=== PATIENT | male | born 1990 | race Caucasian/White ===

== ENCOUNTER 2016-04-30 10:54 | Emergency (ER) | payer OTHER ==
--- NOTE | 2016-04-30 11:16 | ERPHSYRPT ---
- History of Present Illness Time Seen by Provider: 04/30/16 11:09 Historian: patient Exam Limitations: no limitations Patient Subjective Stated Complaint: rt flank pain sicne this morning Triage Nursing Assessment: states has rt flank pain radiating to rt groin and testicle. vomited [employer]. skin warm and pale. denies pain with urination 'but it feels like i have to poop' Physician History: The patient is a 25-year-old male brought in by his brother complaining of a sudden onset of right flank pain radiating down to his right groin. This began about 45 minutes ago when he first woke up. In the meantime he has vomited once. The pain in his right flank is severe. He has no history of kidney stones. He has no past surgical history. He takes no medicines. He has no allergies. He states his urination is slightly difficult and his urine is reddish. Timing/Duration: today, hour(s) (3/4), sudden Activities at Onset: sleep Quality: stabbing Abdominal Pain Onset Location: flank (right) Pain Radiation: groin (right) Severity of Pain-Max: severe Severity of Pain-Current: severe Modifying Factors: Improves With: nothing Associated Symptoms: nausea, vomiting Previous symptoms: no prior history Allergies/Adverse Reactions: No Known Drug Allergies Allergy (Unverified 04/30/16 11:05) Home Medications: No Home Meds 1 [facility] UD 04/30/16 [History] Hx Tetanus, Diphtheria Vaccination/Date Given: Yes Hx Influenza Vaccination/Date Given: No Hx Pneumococcal Vaccination/Date Given: No Immunizations Up to Date: Yes - Review of Systems Constitutional: No Fever, No Chills Eyes: No Symptoms Ears, Nose, & Throat: No Symptoms Respiratory: No Cough, No Dyspnea Cardiac: No Chest Pain, No Edema, No Syncope Abdominal/Gastrointestinal: Abdominal Pain, Nausea, Vomiting Genitourinary Symptoms: Flank Pain Musculoskeletal: No Back Pain, No Neck Pain Skin: No Rash Neurological: No Dizziness, No Focal Weakness, No Sensory Changes Psychological: No Symptoms Endocrine: No Symptoms Hematologic/Lymphatic: No Symptoms Immunological/Allergic: No Symptoms All Other Systems: Reviewed and Negative - Past Medical History Pertinent Past Medical History: Yes Psycho-Social History: Depression - Past Surgical History Past Surgical History: No - Social History Smoking Status: Current every day smoker Drug Use: none Patient Lives Alone: No - Nursing Vital Signs Nursing Vital Signs: Initial Vital Signs Temperature 98.4 F Temperature Source Oral Pulse Rate 80 Respiratory Rate 18 Blood Pressure 117/67 Pain Intensity 4 - Physical Exam General Appearance: moderate distress Eye Exam: PERRL/EOMI, eyes nml inspection Ears, Nose, Throat Exam: normal ENT inspection, pharynx normal, moist mucous membranes Neck Exam: normal inspection, non-tender, supple, full range of motion Respiratory Exam: normal breath sounds, lungs clear, No respiratory distress Cardiovascular Exam: regular rate/rhythm, normal heart sounds Gastrointestinal/Abdomen Exam: tenderness (right) Back Exam: CVA tenderness (right) Extremity Exam: normal inspection, normal range of motion, pelvis stable Neurologic Exam: alert, oriented x 3, cooperative, normal mood/affect, nml cerebellar function, sensation nml, No motor deficits Skin Exam: normal color, warm, dry SpO2 Interpretation: normal SpO2: 100 Oxygen Delivery: Room Air - CT Exams Abdomen/Pelvis CT Interpretation: Tele-radiologist Report, Normal Appendix, Other (right ureteral 5 mm stone with mild hydronephrosis) Ordered Tests: Active Orders 24 hr Category Date Time Status IV Insertion STAT Care 04/30/16 11:20 Active ABDOMEN AND PELVIS W/0 CONTRAS [CT] Stat Exams 04/30/16 12:09 Completed CBC W DIFF Stat Lab 04/30/16 11:30 Completed CMP Stat Lab 04/30/16 11:30 Completed LIPASE Stat Lab 04/30/16 11:30 Completed Manual Differential NC Stat Lab 04/30/16 11:30 Completed UA W/ MICROSCOPIC Stat Lab 04/30/16 11:30 Completed Medication Summary Discontinued Medications Generic Name Dose Route Start Last Admin Trade Name Freq PRN Reason Stop Dose Admin Sodium Chloride 1,000 mls @ 999 mls/hr 04/30/16 11:20 04/30/16 11:34 Sodium Chloride 0.9% 1000 Ml IV 04/30/16 12:20 999 mls/hr .Q1H1M STA Administration Sodium Chloride Confirm 04/30/16 11:33 Sodium Chloride 0.9% 1000 Ml Administered 04/30/16 11:34 Dose 1,000 mls @ ud .ROUTE .STK-MED ONE Ketorolac Tromethamine 30 mg 04/30/16 11:20 04/30/16 11:34 Toradol 30 Mg Injection IV 04/30/16 11:21 30 mg STAT ONE Administration Ketorolac Tromethamine Confirm 04/30/16 11:33 Toradol 30 Mg Injection Administered 04/30/16 11:34 Dose 30 mg .ROUTE .STK-MED ONE Ondansetron HCl 4 mg 04/30/16 11:20 04/30/16 11:34 Zofran 4 Mg/2 Ml Vial IV 04/30/16 11:21 4 mg STAT ONE Administration Ondansetron HCl Confirm 04/30/16 11:33 Zofran 4 Mg/2 Ml Vial Administered 04/30/16 11:34 Dose 4 mg .ROUTE .STK-MED ONE Tamsulosin HCl 0.4 mg 04/30/16 12:43 04/30/16 12:46 Flomax 0.4 Mg PO 04/30/16 12:44 0.4 mg DAILY STA Administration Tamsulosin HCl Confirm 04/30/16 12:45 Flomax 0.4 Mg Administered 04/30/16 12:46 Dose 0.4 mg .ROUTE .STK-MED ONE Lab/Rad Data: Laboratory Result Diagrams 04/30/16 11:30 04/30/16 11:30 Laboratory Results 04/30/16 04/30/16 04/30/16 Range/Units 11:30 11:30 11:30 WBC 9.2 (4.0-10.5) K/mm3 RBC 4.91 (4.1-5.6) M/mm3 Hgb 14.7 (12.5-18.0) gm/dl Hct 44.3 (42-50) % MCV 90.2 (78-100) fl MCH 29.9 (26-32) pg MCHC 33.2 (32-36) g/dl RDW 13.0 (11.5-14.0) % Plt Count 353 (150-450) K/mm3 MPV 8.9 (6-9.5) fl Segmented Neutrophils 60 (36.-66.) % Band Neutrophils 1 (0.0-2.0) % Lymphocytes (Manual) 26 (24-44) % Monocytes (Manual) 9 (0.0-12.0) % Eosinophils (Manual) 3 (0.00-3.0) % Basophils (Manual) 1 (0.0-1.0) % Differential Comment NORMAL Platelet Estimate NORMAL (NORMAL) Sodium 141 (136-145) mEq/L Potassium 3.8 (3.5-5.1) mEq/L Chloride 102 (98-107) mEq/L Carbon Dioxide 27.8 (21-32) mEq/L Anion Gap 14.5 (5-15) MEQ/L BUN 12 (9-20) mg/dL Creatinine 0.96 (0.55-1.30) mg/dl Estimated GFR > 60 ML/MIN Glucose 125 H (70-110) MG/DL Calcium 9.3 (8.5-10.1) mg/dL Total Bilirubin 0.5 (0.2-1.0) mg/dL AST 52 H (15-37) U/L ALT 167 H (12-78) U/L Alkaline Phosphatase 83 (46-116) U/L Serum Total Protein 8.0 (6.4-8.2) gm/dL Albumin 4.4 (3.4-5.0) g/dL Lipase 132 (73-393) U/L Ur Collection Type VOID Urine Color RED (YELLOW) Urine Appearance CLOUDY (CLEAR) Urine pH 5.0 (5-6) Ur Specific [place] >=1.030 (1.005-1.025) Urine Protein 100 (Negative) Urine Glucose (UA) NEGATIVE (NEGATIVE) mg/dL Urine Ketones NEGATIVE (NEGATIVE) Urine Nitrite NEGATIVE (NEGATIVE) Urine Bilirubin SMALL (NEGATIVE) Urine Urobilinogen 0.2 (0-1) mg/dL Urine WBC (Auto) NEGATIVE (NEGATIVE) Urine RBC (Auto) LARGE (0-5) Jack/ul Urine Microscopic RBC >100 (0-2) /HPF Urine Microscopic WBC 0-2 (0-5) /HPF Ur Epithelial Cells RARE (FEW) /HPF Urine Bacteria MODERATE (NEGATIVE) /HPF Urine Mucus SLIGHT (NEGATIVE) /HPF Urine Yeast FEW (NEGATIVE) /HPF Specimen Received 04/30/16 1120 - Progress Progress: improved, pain not gone completely Counseled pt/family regarding: lab results, diagnosis, need for follow-up, rad results - Departure Time of Disposition: 12:51 Departure Disposition: Home Clinical Impression: Ureteral stone with hydronephrosis Condition: Stable Critical Care Time: No Additional Instructions: Stain urine and retrieve stone. Follow up with Dr Henderson after stone passage. Follow up in 2 days if stone has not passed. [place] as directed. Stay well hydrated. Prescriptions: Hydrocodone Bit/Acetaminophen [[place] 5-325 Tablet] 1 each PO Q6H PRN PRN #15 tablet PRN Reason: Pain Naproxen 500 mg PO BID PRN #30 tablet
[2016-04-30] MEDS ORDERED: TORAdol 30 mg Injection IV ONE (11:20)
[2016-04-30] MEDS ORDERED: Zofran 4 MG/2 ML VIAL IV ONE (11:20)
[2016-04-30] MEDS ORDERED: Sodium Chloride 0.9% 1000 ML 1,000 ML IV STA (11:20)
[2016-04-30] MEDS ORDERED: Zofran 4 MG/2 ML VIAL ONE (11:33)
[2016-04-30] MEDS ORDERED: TORAdol 30 mg Injection ONE (11:33)
[2016-04-30] MEDS ORDERED: Sodium Chloride 0.9% 1000 ML 1,000 ML ONE (11:33)
[2016-04-30 11:45] LABS: Mean Cell Volume 90.2 fl (78-100); Mean Corpuscular Hemoglobin 29.9 pg (26-32); Mean Platelet Volume 8.9 fl (6-9.5); Platelet Count 353 K/mm3 (150-450); Red Blood Count 4.91 M/mm3 (4.1-5.6); White Blood Count 9.2 K/mm3 (4.0-10.5)
[2016-04-30 11:51] LABS: COMPLETE URINE MICROSCOPIC? YES; Collection Type VOID
[2016-04-30 11:53] LABS: Mucus SLIGHT /HPF (NEGATIVE)
[2016-04-30 11:54] LABS: WBC 0-2 /HPF (0-5)
[2016-04-30 11:55] LABS: Bacteria MODERATE /HPF (NEGATIVE); Epithelial Cells RARE /HPF (FEW)
[2016-04-30 11:58] LABS: Yeast FEW /HPF (NEGATIVE)
[2016-04-30 12:01] LABS: ALBUMIN 4.4 g/dL (3.4-5.0); ALKALINE PHOSPHATASE 83 U/L (46-116); ANION GAP 14.5 MEQ/L (5-15); BILIRUBIN,TOTAL 0.5 mg/dL (0.2-1.0); BLOOD UREA NITROGEN 12 mg/dL (9-20); CHLORIDE 102 mEq/L (98-107); Carbon Dioxide 27.8 mEq/L (21-32); Glucose 125 MG/DL (70-110); LIPASE 132 U/L (73-393); Potassium 3.8 mEq/L (3.5-5.1); SGOT/AST 52 U/L (15-37); SGPT/ALT 167 U/L (12-78); SODIUM 141 mEq/L (136-145)
[2016-04-30 12:05] LABS: BAND 1 % (0.0-2.0); Basophil 1 % (0.0-1.0); Eosinophil 3 % (0.00-3.0); Platelet Estimate NORMAL (NORMAL); Total Cells Counted 100
--- NOTE | 2016-04-30 12:39 | XRAY ---
Indication: Right flank pain, blood in urine, nausea, and vomiting. Multiple contiguous axial images obtained through the abdomen and pelvis without contrast using renal stone protocol. Comparison: None Lung bases are clear. Heart is not enlarged. 5 mm right mid ureteral calculus, approximately L3-L4 interspace level. Proximal right ureter slightly prominent along with mild hydronephrosis consistent with obstructive uropathy. No free fluid/air. Additional bilateral renal micro-calculi, 2 in the right kidney and 1 in the left kidney. Noncontrasted stomach and bowel loops appear nonobstructed. Mild scattered colonic fecal debris throughout. Normal appendix. Remaining liver, gallbladder, pancreas, spleen, adrenal glands, kidneys, ureters, bladder, and aorta appear unremarkable for noncontrast exam. Osseous structures intact. Impression: 1. 5 mm right mid ureteral calculus producing partial obstruction as detailed. Additional bilateral renal micro-calculi. 2. Mild fecal stasis without obstruction. CT DI is 11.57
[2016-04-30] MEDS ORDERED: Flomax 0.4 MG PO STA (12:43)
[2016-04-30] MEDS ORDERED: Flomax 0.4 MG ONE (12:45)
[2016-04-30 13:42] VITALS: BP 123/67; PULSE 77; O2SAT 98
== END 2016-04-30 13:25 | disposition home or self-care (01) ==
LOC: ED 10:54
DX: N13.2 Hydronephrosis with renal and ureteral calculous obstruction (principal); R10.9 Unspecified abdominal pain; R11.2 Nausea with vomiting, unspecified
CPT/HCPCS: 36000; 36415; 74176; 80053; 81000; 83690; 85025; 96360; 99283; J1885; J2405

== ENCOUNTER 2016-05-01 17:22 | Observation (INO) | payer OTHER ==
[2016-05-01] MEDS ORDERED: TYLENOL 325 MG PO PRN (17:31)
[2016-05-01] MEDS ORDERED: Phenergan 25 MG INJ IV PRN (17:32)
[2016-05-01] MEDS ORDERED: Colace 100 MG PO PRN (17:32)
[2016-05-01] MEDS ORDERED: Sodium Chloride 0.9% 1000 ML 1,000 ML IV SCH (18:00)
[2016-05-01] MEDS: Dextrose 5% -0.45 NaCl 1000 ML 1,000 ML IV SCH (18:31)
[2016-05-01] MEDS: NICODERM CQ 14 MG TOP SCH (18:31)
[2016-05-01 18:38] LABS: BASOPHIL % 0.1 % (0.0-0.4); Eosinophil % 0.2 % (0.00-5.0); Granulocytes % 85.7 % (36.0-66.0); Lymphocytes % 7.8 % (24.0-44.0); Mean Cell Volume 90.2 fl (78-100); Mean Corpuscular Hemoglobin 30.2 pg (26-32); Mean Platelet Volume 8.7 fl (6-9.5); Monocytes % 6.2 % (0.0-12.0); Platelet Count 288 K/mm3 (150-450); Red Cell Distribution Width 12.7 % (11.5-14.0); White Blood Count 14.1 K/mm3 (4.0-10.5)
[2016-05-01 19:18] LABS: ALBUMIN 4.3 g/dL (3.4-5.0); ALKALINE PHOSPHATASE 71 U/L (46-116); ANION GAP 10.9 MEQ/L (5-15); BILIRUBIN,TOTAL 0.6 mg/dL (0.2-1.0); BLOOD UREA NITROGEN 13 mg/dL (9-20); CHLORIDE 103 mEq/L (98-107); Carbon Dioxide 28.7 mEq/L (21-32); Glucose 111 MG/DL (70-110); Potassium 4.2 mEq/L (3.5-5.1); SGOT/AST 48 U/L (15-37); SGPT/ALT 121 U/L (12-78); SODIUM 138 mEq/L (136-145); Total Protein 7.5 gm/dL (6.4-8.2)
[2016-05-01] MEDS: ROCEPHIN 1 Gm-D5w 50 ml Bag** 50 ML IV SCH (21:39)
[2016-05-01] MEDS: MORPHINE SULFATE 4 MG INJ IV PRN (21:42)
[2016-05-02 00:58] LABS: Collection Type CLEAN CATCH
[2016-05-02 00:59] LABS: Bacteria RARE /HPF (NEGATIVE); COMPLETE URINE MICROSCOPIC? YES; Epithelial Cells FEW /HPF (FEW)
[2016-05-02] MEDS: Dextrose 5% -0.45 NaCl 1000 ML 1,000 ML IV SCH ×4 (02:43→23:57)
[2016-05-02] MEDS: MORPHINE SULFATE 4 MG INJ IV PRN ×2 (02:43→23:17)
--- NOTE | 2016-05-02 08:27 | XRAY ---
Indication: Follow-up right renal stone. Comparison: CT renal stone study one day earlier KUB demonstrates known right ureteral calculus now at the level of the pelvic inlet, previously approximately L3-L4 interspace level. Mild scattered colonic fecal debris without obstruction. Solid organs and osseous structures unremarkable.
[2016-05-02] MEDS: NICODERM CQ 14 MG TOP SCH (08:36)
[2016-05-02] MEDS ORDERED: Flomax 0.4 MG PO ONE (14:30)
[2016-05-02 14:48] LABS: BASOPHIL % 0.4 % (0.0-0.4); Eosinophil % 1.6 % (0.00-5.0); Granulocytes % 72.1 % (36.0-66.0); Lymphocytes % 18.4 % (24.0-44.0); Mean Cell Volume 91.2 fl (78-100); Mean Corpuscular Hemoglobin 29.5 pg (26-32); Mean Platelet Volume 8.6 fl (6-9.5); Monocytes % 7.5 % (0.0-12.0); Platelet Count 265 K/mm3 (150-450); Red Cell Distribution Width 12.6 % (11.5-14.0); White Blood Count 6.8 K/mm3 (4.0-10.5)
[2016-05-02 15:42] LABS: ANION GAP 7.5 MEQ/L (5-15); BLOOD UREA NITROGEN 8 mg/dL (9-20); CHLORIDE 104 mEq/L (98-107); Glucose 101 MG/DL (70-110); Potassium 3.7 mEq/L (3.5-5.1); SODIUM 140 mEq/L (136-145)
--- NOTE | 2016-05-02 17:01 | HP ---
HISTORY OF PRESENT ILLNESS: This is a 25 year-old who first presented to the emergency department on 04/30/2016 with abdominal pain. He had a CT scan of his abdomen and pelvis which revealed a 5 mm right mid ureteral calculus producing partial obstruction. Please seen the radiologist dictation for full details. The patient was sent home with naproxen and hydrocodone. He continued to have pain. He saw me in the clinic in the a.m. on 05/01/2016 approximately 24 hours after he was in the emergency department. He was still having some vomiting at home but said he had been able to keep some fluids down and was urinating well. He stated the pain was more lower than it had been before so he felt like the stone had moved some. He denied any hematuria but states that he had some hematuria the day before that. He was offered observation admission at that time but declined. I gave him an order to have his stone analyzed and got a kit from the lab to strain this. He then called back later as he had been instructed to do so if he was having more problems and wanted to be admitted to the hospital so he was made a direct admission. This morning the patient states his pain was pretty well controlled. He has needed a couple of doses of IV morphine. He states the pain is not as bad. It is about 1 out of 10. He has more pain when he tries to urinate. He denies as much pain when he is moving around. He is not as restless as he was. He continues to strain his urine. He had been given [place] at home and had taken five to six of these and they have not been helping much. REVIEW OF SYSTEMS: He denies any fever. He has not had a stool for three days but does not necessarily feels constipated. No diarrhea. He had the nausea and vomiting and the abdominal pain. No chest pain. No shortness of breath. No rashes. No lower extremity edema. PAST MEDICAL HISTORY: He has been healthy. PAST SURGICAL HISTORY: None. MEDICATIONS: Naproxen 500 mg p.o. b.i.d. ordered by the emergency room doctor and hydrocodone 5/325 one tablet every four hours as needed for pain ordered by the emergency room doctor. ALLERGIES: NKDA. SOCIAL HISTORY: He smokes about one cigarette every three weeks. Denies any alcohol use. He lives with his mom, dad and brother. FAMILY HISTORY: Unknown as he is adopted. PHYSICAL EXAMINATION: VITAL SIGNS: Temperature current 97.8F, temperature max 98.0F, heart rate 80 to 97, respiratory rate 16 to 20, blood pressure 114 to 129 over 71 to 74, weight 57 kg. Oxygen saturation 97 to 99% on room air. GENERAL: The patient is a pleasant talkative man in no acute distress. His adoptive parents are at the bedside. CVS: He has a regular rate and rhythm. No murmurs, gallops or rubs are appreciated. CHEST: Clear to auscultation bilaterally. No crackles or wheezes. ABDOMEN: Soft, nontender, nondistended with normal bowel sounds. EXTREMITIES: No clubbing, cyanosis or edema. SKIN: Warm, dry and intact. LABORATORY DATA AND TESTS: His white blood cell count was 14,100 on 05/01/2016 and in the emergency room it had been 9,200. On 05/01/2016 he had 85% granulocytes, 7.8% lymphocytes. UA continued to reveal large red blood cells, no white blood cells. Urine culture was obtained. AST slightly elevated at 48. ALT slightly elevated at 121. KUB revealed that the stone had moved down to the right pelvic inlet. ASSESSMENT AND PLAN: 1) Right nephrolithiasis. Will continue with IV fluids, will try another dose of Flomax, will continue IV pain control. If he does not pass the stone will need to call urology to see what they would like to do next. Repeat his CBC and BMP today. 2) Constipation. Will start some docusate to make sure he does not get constipated. 3) Tobacco abuse. The patient was counseled that he needs to quit smoking.
[2016-05-02] MEDS: ROCEPHIN 1 Gm-D5w 50 ml Bag** 50 ML IV SCH (20:35)
[2016-05-02] MEDS: Colace 100 MG PO SCH (21:33)
[2016-05-03] MEDS: Dextrose 5% -0.45 NaCl 1000 ML 1,000 ML IV SCH (08:08)
[2016-05-03] MEDS: Colace 100 MG PO SCH (09:59)
[2016-05-03 12:21] VITALS: BP 112/66; PULSE 88; O2SAT 99
--- NOTE | 2016-05-03 13:27 | PCM.DCORD ---
- Discharge Discharge Date: 05/03/16 Disposition: Home, Self-Care Condition: Good Prescriptions: Cefdinir [Omnicef] 300 mg PO BID #6 capsule Medications: Home Medications Naproxen 500 mg PO BID PRN #30 tablet 04/30/16 [Confirmed 05/01/16] Hydrocodone Bit/Acetaminophen [[place] 5-325 Tablet] 1 tab PO Q6H PRN PRN [Confirmed 05/01/16] Active Inpatient Medications Acetaminophen (Tylenol 325 Mg) 650 mg PO Q4H PRN PRN PRN Reason: TEMP >101 [place] Stop: 05/31/16 17:30 Last Admin: 05/02/16 13:41 Dose: 650 mg Docusate Sodium (Colace 100 Mg) 100 mg PO BID [facility] Stop: 06/01/16 21:59 Last Admin: 05/03/16 09:59 Dose: 100 mg Dextrose/Sodium Chloride (Dextrose 5% -0.45 Nacl 1000 Ml) 1,000 mls @ 120 mls/ hr IV .Q8H20M [facility] Stop: 05/31/16 18:59 Last Admin: 05/03/16 08:08 Dose: 120 mls/hr Ceftriaxone Sodium/Dextrose (Rocephin 1 Gm-D5w 50 Ml Bag) 50 mls @ 100 mls/ hr IV Q24H [facility] Stop: 05/31/16 19:59 Last Admin: 05/02/16 20:35 Dose: 100 mls/hr Morphine Sulfate (Morphine Sulfate 4 Mg Inj) 4 mg IV Q4H PRN PRN PRN Reason: PAIN Stop: 05/06/16 17:31 Last Admin: 05/02/16 23:17 Dose: 4 mg Promethazine HCl (Phenergan 25 Mg Inj) 12.5 mg IV Q6H PRN PRN PRN Reason: NAUSEA/VOMITING Stop: 05/31/16 17:31 Follow up with: GRACIE LIGHT [Primary Care Provider] - 1 Week
--- NOTE | 2016-05-05 12:57 | DS ---
DISCHARGE DIAGNOSES: 1) RIGHT NEPHROLITHIASIS. 2) CONSTIPATION. 3) TOBACCO ABUSE. DISCHARGE PHYSICAL EXAMINATION: VITALS: Temperature current 97.8F, temperature max 98.6F, heart rate 72 to 88, respiratory rate 18 to 20, blood pressure 112 to 123 over 64 to 74. Oxygen saturation 97 to 99% on room air. GENERAL: The patient is a pleasant talkative young man lying in bed in no acute distress. CVS: His heart has a regular rate and rhythm. No murmurs, gallops or rubs. CHEST: Clear to auscultation bilaterally. No crackles or wheezes. ABDOMEN: Soft, nontender, nondistended with normal bowel sounds. EXTREMITIES: No clubbing, cyanosis or edema. SKIN: Warm, dry and intact. HOSPITAL COURSE: 1) Right nephrolithiasis: He was admitted he had been in the emergency room and diagnosed with kidney stone on the right, for pain control. He had not passed it yet. I checked a KUB and this did show the stone and so he was given IV fluids and IV pain medicine. The KUB was rechecked today and did not show the stone. The patient reports that his pain is gone. However a stone for analysis was never able to be collected. The patient is agreeable to going home. He is taking fluids and food by mouth well. I will make sure he is drinking plenty of fluid especially water at home and have him follow up with me in the clinic in one to two weeks. His white blood cell count was slightly elevated on admission. UA and culture was obtained. The culture is no growth to date but I would like to go ahead and finish out a course of antibiotic for possible urinary tract infection, this was explained to the patient who voiced his understanding. 2) Constipation: He was given a stool softener while he was here in the hospital. 3) Tobacco abuse: The patient was counseled that he needs to completely quit smoking. DISCHARGE MEDICATIONS: Cefdinir 300 mg p.o. b.i.d. DISPOSITION: The patient was discharged to home in good condition.
--- NOTE | 2016-05-06 08:35 | XRAY ---
Indication: Follow-up right renal stone. Comparison: One day earlier KUB obtained. Previous distal right ureteral calculus not seen presumed passed. Remaining solid organs, bowels, and osseous structures unremarkable.
== END 2016-05-03 15:30 | disposition home or self-care (01) ==
LOC: MED SURG 18:06
PROVIDERS: ADMIT Internal Medicine; ATTEND Internal Medicine
DX: N20.0 Calculus of kidney (principal); K59.00 Constipation, unspecified; Z72.0 Tobacco use
CPT/HCPCS: 36415; 74000; 80048; 80053; 81000; 85025; 87086; G0378; J0696; J2270

== ENCOUNTER 2017-12-06 00:37 | Emergency (ER) | payer OTHER ==
[2017-12-06 01:06] VITALS: BP 134/80; PULSE 80; O2SAT 100
--- NOTE | 2017-12-06 01:35 | ERPHSYRPT ---
- History of Present Illness Time Seen by Provider: 12/06/17 01:24 Historian: patient, family Exam Limitations: no limitations Patient Subjective Stated Complaint: pt states he started having left lower back and flank pain on 12/02/2017; pt was in [place] when s/s started and seen in the er there; ct and dc paperwork with pt upon arrival to er this am; pt states pain was intermittent this week up until late this evening and has now increased to 10 out of 10 and radiating from left lower back around left flank; pt also co urinary frequency and burning since this pm. Triage Nursing Assessment: pt a&o x3; skin p, w, & d; appears to be in pain upon arrival; ambulated to room per self; father at bedside. Physician History: The patient is a 27-year-old male with his father complaining of having a left kidney stone as being passed since November 26. He was vacationing in [place] when the pain suddenly started. He states he had a CT scan done in [place] that showed a 5 mm stone. He is has only been taking Flomax, Phenergan, and ibuprofen. The pain has gotten worse today he would like something stronger for the pain. He has an appointment on with the urologist. He denies nausea or vomiting at this time. He says his urine sometimes has flecks of blood in it. His past medical history significant for kidney stones. One year ago he was seen in this ER and had a right-sided kidney stone. Timing/Duration: day(s) (10), worse Activities at Onset: none Quality: sharpness Abdominal Pain Onset Location: flank (left) Pain Radiation: LLQ, groin Severity of Pain-Max: moderate Severity of Pain-Current: moderate Modifying Factors: Improves With: analgesics Associated Symptoms: nausea Previous symptoms: same symptoms as today, recently treated, no recent treatment Allergies/Adverse Reactions: No Known Drug Allergies Allergy (Verified 12/06/17 01:06) Home Medications: Ibuprofen 800 mg PO TID 12/06/17 [History] Promethazine HCl 25 mg [Phenergan 25 mg] 25 mg PO BID 12/06/17 [History] Tamsulosin HCl 0.4 mg PO DAILY 12/06/17 [History] Hx Tetanus, Diphtheria Vaccination/Date Given: Yes Hx Influenza Vaccination/Date Given: No Hx Pneumococcal Vaccination/Date Given: No Immunizations Up to Date: No - Review of Systems Constitutional: No Fever, No Chills Eyes: No Symptoms Ears, Nose, & Throat: No Symptoms Respiratory: No Cough, No Dyspnea Cardiac: No Chest Pain, No Edema, No Syncope Abdominal/Gastrointestinal: Abdominal Pain, Nausea Genitourinary Symptoms: Dysuria Musculoskeletal: No Back Pain, No Neck Pain Skin: No Rash Neurological: No Dizziness, No Focal Weakness, No Sensory Changes Psychological: No Symptoms Endocrine: No Symptoms Hematologic/Lymphatic: No Symptoms Immunological/Allergic: No Symptoms All Other Systems: Reviewed and Negative - Past Medical History Pertinent Past Medical History: Yes Neurological History: No Pertinent History ENT History: No Pertinent History Cardiac History: No Pertinent History Respiratory History: No Pertinent History Endocrine Medical History: No Pertinent History Musculoskeletal History: No Pertinent History GI Medical History: No Pertinent History History: No Pertinent History Psycho-Social History: No Pertinent History Male Reproductive Disorders: No Pertinent History - Past Surgical History Past Surgical History: No - Social History Smoking Status: Former smoker How long have you smoked: since 2007 Exposure to second hand smoke: No Drug Use: none Patient Lives Alone: No - Nursing Vital Signs Nursing Vital Signs: Initial Vital Signs Temperature 97.3 F 12/06/17 00:49 Pulse Rate 80 12/06/17 00:49 Respiratory Rate 16 12/06/17 00:49 Blood Pressure 134/80 12/06/17 00:49 O2 Sat by Pulse Oximetry 100 12/06/17 00:49 Pain Scale Pain Intensity 10 - Physical Exam General Appearance: mild distress Eye Exam: PERRL/EOMI, eyes nml inspection Ears, Nose, Throat Exam: normal ENT inspection, pharynx normal, moist mucous membranes Neck Exam: normal inspection, non-tender, supple, full range of motion Respiratory Exam: normal breath sounds, lungs clear, No respiratory distress Cardiovascular Exam: regular rate/rhythm, normal heart sounds Gastrointestinal/Abdomen Exam: tenderness (mild tenderness LLQ and left flank) Rectal Exam: not done Back Exam: normal inspection, normal range of motion, No CVA tenderness, No vertebral tenderness Extremity Exam: normal inspection, normal range of motion, pelvis stable Neurologic Exam: alert, oriented x 3, cooperative, normal mood/affect, nml cerebellar function, sensation nml, No motor deficits Skin Exam: normal color, warm, dry SpO2 Interpretation: normal SpO2: 100 Oxygen Delivery: Room Air Ordered Tests: Active Orders 24 hr Category Date Time Status CULTURE,URINE Stat Lab 12/06/17 01:46 Received UA W/ MICROSCOPIC Stat Lab 12/06/17 01:46 Completed Medication Summary Discontinued Medications Generic Name Dose Route Start Last Admin Trade Name Maria Guadalupe PRN Reason Stop Dose Admin Ketorolac Tromethamine 60 mg 12/06/17 01:35 12/06/17 01:47 Toradol 30 Mg Injection IM 12/06/17 01:36 60 mg STAT ONE Administration Ketorolac Tromethamine Confirm 12/06/17 01:42 Toradol 30 Mg Injection Administered 12/06/17 01:43 Dose 60 mg .ROUTE .STK-MED ONE Morphine Sulfate 8 mg 12/06/17 01:36 12/06/17 01:46 Morphine Sulfate 4 Mg Inj IM 12/06/17 01:37 8 mg STAT ONE Administration Morphine Sulfate Confirm 12/06/17 01:42 Morphine Sulfate 4 Mg Inj Administered 12/06/17 01:43 Dose 8 mg .ROUTE .STK-MED ONE Promethazine HCl 25 mg 12/06/17 01:36 12/06/17 01:47 Phenergan 25 Mg Inj IM 12/06/17 01:37 25 mg STAT ONE Administration Promethazine HCl Confirm 12/06/17 01:42 Phenergan 25 Mg Inj Administered 12/06/17 01:43 Dose 25 mg .ROUTE .STK-MED ONE Lab/Rad Data: Laboratory Results 12/06/17 Range/Units 01:46 Ur Collection Type VOID Urine Color YELLOW (YELLOW) Urine Appearance CLEAR (CLEAR) Urine pH 5.0 (5-6) Ur Specific [place] 1.025 (1.005-1.025) Urine Protein 30 (Negative) Urine Ketones NEGATIVE (NEGATIVE) Urine Blood 250 (0-5) Jack/ul Urine Nitrite NEGATIVE (NEGATIVE) Urine Bilirubin NEGATIVE (NEGATIVE) Urine Urobilinogen NORMAL (0-1) mg/dL Ur Leukocyte Esterase NEGATIVE (NEGATIVE) Urine Microscopic RBC 25-50 (0-2) /HPF Urine Microscopic WBC 0-2 (0-5) /HPF Ur Epithelial Cells RARE (FEW) /HPF Urine Bacteria FEW (NEGATIVE) /HPF Urine Mucus SLIGHT (NEGATIVE) /HPF Urine Culture Reflexed YES (NO) Urine Glucose NEGATIVE (NEGATIVE) mg/dL Specimen Received 12/06/17 0150 - Progress Progress: improved Progress Note: 12/06/17 01:[address] of Abd/pelvis from 11/26/17 which shows 5 mm stone in mid left ureter with hydronephrosis. Plain abd xray on 12/03/12 shows stone likely at left UVJ. Counseled pt/family regarding: lab results, diagnosis - Departure Time of Disposition: 02:15 Departure Disposition: Home Clinical Impression: Ureteral calculus, left Condition: Stable Critical Care Time: No Referrals: GRACIE LIGHT [Primary Care Provider] - Additional Instructions: You have a kidney stone on your left side that is ready to pass into your bladder. I reviewed the CT scan done from November 26 and the plain x-ray of your abdomen from December 03 and it shows the stone is ready to be pased. You were given Toradol 60 mg, Phenergan 25 mg, and morphine 8 mg by IM in the ER. Take [place] one tablet every 6 hours as needed for pain. Stay well hydrated. Follow- up with the urologist as scheduled for . Prescriptions: Hydrocodone Bit/Acetaminophen [[place] 5-325 Tablet] 1 each PO Q6H PRN PRN #10 tablet MDD 4 PRN Reason: Pain
[2017-12-06] MEDS ORDERED: Phenergan 25 MG INJ ONE (01:42)
[2017-12-06] MEDS ORDERED: MORPHINE SULFATE 4 MG INJ ONE (01:42)
[2017-12-06] MEDS ORDERED: TORAdol 30 mg Injection ONE (01:42)
[2017-12-06] MEDS: MORPHINE SULFATE 4 MG INJ IM ONE (01:46)
[2017-12-06] MEDS: TORAdol 30 mg Injection IM ONE (01:47)
[2017-12-06] MEDS: Phenergan 25 MG INJ IM ONE (01:47)
[2017-12-06 02:02] LABS: Appearance CLEAR (CLEAR); Bilirubin NEGATIVE (NEGATIVE); Blood 250 Ery/ul (0-5); Glucose NEGATIVE (NEGATIVE); Ketones NEGATIVE (NEGATIVE); Leukocyte Esterase NEGATIVE (NEGATIVE); Nitrite NEGATIVE (NEGATIVE); Protein,Urine Dip 30 (Negative); Specific Gravity 1.025 (1.005-1.025); Urobilinogen NORMAL mg/dL (0-1)
[2017-12-06 02:03] LABS: Bacteria FEW /HPF (NEGATIVE); Epithelial Cells RARE /HPF (FEW); Mucus SLIGHT /HPF (NEGATIVE); RBC 25-50 /HPF (0-2); WBC 0-2 /HPF (0-5)
[2017-12-06] MEDS ORDERED: NORCO 5/325 MG ONE (02:23)
[2017-12-06] MEDS: NORCO 5/325 MG PO ONE (02:25)
== END 2017-12-06 02:30 | disposition home or self-care (01) ==
LOC: ED 00:37
DX: N13.2 Hydronephrosis with renal and ureteral calculous obstruction (principal); Z87.442 Personal history of urinary calculi; Z79.899 Other long term (current) drug therapy
CPT/HCPCS: 81000; 87086; 96372; 99284; J1885; J2270; J2550; A9270-GY

== ENCOUNTER 2018-07-14 16:31 | Emergency (ER) | payer OTHER ==
[2018-07-14 16:53] VITALS: O2SAT 98
[2018-07-14] MEDS ORDERED: Sodium Chloride 0.9% 1000 ML 1,000 ML IV STA (18:19)
--- NOTE | 2018-07-14 18:23 | ERPHSYRPT ---
- History of Present Illness Historian: patient Exam Limitations: no limitations Patient Subjective Stated Complaint: pain in medial abdomen Triage Nursing Assessment: Pt c/o of abdominal pain that is in the medial upper quadrants, went to [facility] today and was told that it was acid reflux and was placed on Zantac, came here due to the pain worsening, vitals wnl, hyperactive bowel sounds heard in all quadrants, states pain comes and goes, rates pain 7/10, unable to eat due to it causes increased pain, still has gall bladder, still has appendix, doesn't appear to be in any distress Timing/Duration: yesterday (last night) Activities at Onset: none Quality: aching, cramping Abdominal Pain Onset Location: epigastric, periumbilical Severity of Pain-Max: moderate Severity of Pain-Current: mild Modifying Factors: Improves With: nothing Associated Symptoms: No back, No chest pain, No diaphoresis, No diarrhea, No fever/chills, No fatigue, No headache, No heartburn, No loss of appetite, No nausea, No neck pain, No rash, No shortness of breath, No syncope, No vomiting, No weakness Previous symptoms: no prior history Hx Tetanus, Diphtheria Vaccination/Date Given: Yes Hx Influenza Vaccination/Date Given: No Hx Pneumococcal Vaccination/Date Given: No <INGRID GUY - Last Filed: 07/14/18 19:20> <NICOLLE COLVIN - Last Filed: 07/14/18 21:30> - History of Present Illness Time Seen by Provider: 07/14/18 18:13 Physician History: 27-year-old white male arrives with complaint of periumbilical abdominal pain since last night. He states he was seen at [facility] and told he has GERD he continues to have crampy abdominal pain located in the epigastric and periumbilical region. He states he has not had any vomiting he's had frequent stools but not loose stools. He was given ranitidine by [facility] which he was taken. Past medical history includes anxiety, depression, kidney stones (INGRID GUY) Allergies/Adverse Reactions: No Known Drug Allergies Allergy (Verified 07/14/18 16:53) Home Medications: Ranitidine HCl [Zantac] 150 mg PO BID 07/14/18 [History] - Review of Systems Constitutional: No Fever, No Chills Eyes: No Symptoms Ears, Nose, & Throat: No Symptoms Respiratory: No Cough, No Dyspnea Cardiac: No Chest Pain, No Edema, No Syncope Abdominal/Gastrointestinal: Abdominal Pain, No Nausea, No Vomiting, No Diarrhea , No Constipation, No Hematemesis, No Hematochezia, No Melena, No Dysphagia, No Appetite Changes Genitourinary Symptoms: No Dysuria Musculoskeletal: No Back Pain, No Neck Pain Skin: No Rash Neurological: No Dizziness, No Focal Weakness, No Sensory Changes Psychological: No Symptoms Endocrine: No Symptoms All Other Systems: Reviewed and Negative <INGRID GUY - [employer] Filed: 07/14/18 19:20> - Past Medical History Pertinent Past Medical History: Yes Neurological History: No Pertinent History ENT History: No Pertinent History Cardiac History: No Pertinent History Respiratory History: No Pertinent History Endocrine Medical History: No Pertinent History Musculoskeletal History: No Pertinent History GI Medical History: No Pertinent History History: Other Psycho-Social History: Anxiety, Depression Male Reproductive Disorders: No Pertinent History Other Medical History: kidney stones 2-3 times - Past Surgical History Past Surgical History: No - Social History Smoking Status: Current some day smoker How long have you smoked: since 2007 Exposure to second hand smoke: Yes Drug Use: none Patient Lives Alone: No <INGRID GUY [email or web address] Filed: 07/14/18 19:20> - Physical Exam General Appearance: no apparent distress, alert Eye Exam: PERRL/EOMI, eyes nml inspection Ears, Nose, Throat Exam: normal ENT inspection, pharynx normal, moist mucous membranes Neck Exam: normal inspection, non-tender, supple, full range of motion Respiratory Exam: normal breath sounds, lungs clear, No respiratory distress Cardiovascular Exam: regular rate/rhythm, normal heart sounds, capillary refill <2 sec Gastrointestinal/Abdomen Exam: soft, normal bowel sounds, tenderness ( periumbilical tenderness) Back Exam: normal inspection, normal range of motion, No CVA tenderness, No vertebral tenderness Extremity Exam: normal inspection, normal range of motion, pelvis stable Neurologic Exam: alert, oriented x 3, cooperative, 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, normal mood/affect, nml cerebellar function, sensation nml, No motor deficits Skin Exam: normal color, warm, dry SpO2 Interpretation: normal (98%) SpO2: 98 <INGRID GUY - Last Filed: 07/14/18 19:20> - Nursing Vital Signs Nursing Vital Signs: Initial Vital Signs Temperature 97.6 F 07/14/18 16:39 Pulse Rate 72 07/14/18 16:39 Respiratory Rate 12 07/14/18 16:39 Blood Pressure 117/70 07/14/18 16:39 O2 Sat by Pulse Oximetry 98 07/14/18 16:39 Pain Scale Pain Intensity 7 - Course Nursing assessment & vital signs reviewed: Yes <INGRID GUY - Last Filed: 07/14/18 19:20> - CT Exams Abdomen/Pelvis CT Interpretation: Discussed w/radiologist (NONOBSTRUCTIVE BILATERAL MICROCALC, NORMAL APPENDIX, REMAINDING STUDY NEGATIVE) <NICOLLE COLVIN - Last Filed: 07/14/18 21:30> Ordered Tests: Active Orders 24 hr Category Date Time Status IV Insertion STAT Care 07/14/18 18:19 Active ABDOMEN AND PELVIS W CONTRAST [CT] Stat Exams 07/14/18 19:32 Taken AMYLASE Stat Lab 07/14/18 18:25 Received CBC W DIFF Stat Lab 07/14/18 18:25 Completed LIPASE Stat Lab 07/14/18 19:00 Ordered Lactic Acid Stat Lab 07/14/18 18:19 Completed UA W/RFX UR CULTURE Stat Lab 07/14/18 19:26 Completed Medication Summary Discontinued Medications Generic Name Dose Route Start Last Admin Trade Name Maria Guadalupe PRN Reason Stop Dose Admin Sodium Chloride 1,000 mls @ 999 mls/hr 07/14/18 18:19 07/14/18 18:52 Sodium Chloride 0.9% 1000 Ml IV 07/14/18 19:19 999 mls/hr .Q1H1M STA Administration Sodium Chloride Confirm 07/14/18 18:46 Sodium Chloride 0.9% 1000 Ml Administered 07/14/18 18:47 Dose 1,000 mls @ ud .ROUTE .STK-MED ONE Lab/Rad Data: Laboratory Result Diagrams 07/14/18 18:25 07/14/18 18:25 Laboratory Results 07/14/18 07/14/18 07/14/18 Range/Units 19:26 18:25 18:25 WBC 13.9 H (4.0-10.5) K/mm3 RBC 4.87 (4.1-5.6) M/mm3 Hgb 14.9 (12.5-18.0) gm/dl Hct 44.1 (42-50) % MCV 90.6 (78-100) fl MCH 30.6 (26-32) pg MCHC 33.8 (32-36) g/dl RDW 12.6 (11.5-14.0) % Plt Count 286 (150-450) K/mm3 MPV 9.2 (6-9.5) fl Gran % 88.8 H (36.0-66.0) % Eos # (Auto) 0.09 (0-0.5) Absolute Lymphs (auto) 0.73 L (1.0-4.6) Absolute Monos (auto) 0.74 (0.0-1.3) Lymphocytes % 5.2 L (24.0-44.0) % Monocytes % 5.3 (0.0-12.0) % Eosinophils % 0.6 (0.00-5.0) % Basophils % 0.1 (0.0-0.4) % Absolute Granulocytes 12.33 H (1.4-6.9) Basophils # 0.02 (0-0.4) Sodium Direct 136 L (138-146) mmol/L Potassium 4.2 (3.5-4.9) mmol/L Chloride 98 (98-109) mmol/L Carbon Dioxide 32 H (24-29) mmol/L Venous BUN 9 (8-26) mg/dL Creatinine 0.7 (0.6-1.3) mg/dL Glucose 115 H (70-105) mg/dL Lactic Acid (0.4-2.0) Ionized Calcium 1.27 (1.12-1.32) mmol/L Urine Color COLORLESS (YELLOW) Urine Appearance CLEAR (CLEAR) Urine pH 8.0 (5-6) Ur Specific [place] 1.003 (1.005-1.025) Urine Protein NEGATIVE (Negative) Urine Ketones NEGATIVE (NEGATIVE) Urine Blood SMALL (0-5) Jack/ul Urine Nitrite NEGATIVE (NEGATIVE) Urine Bilirubin NEGATIVE (NEGATIVE) Urine Urobilinogen NEGATIVE (0-1) mg/dL Ur Leukocyte Esterase NEGATIVE (NEGATIVE) Urine WBC (Auto) NONE (0-5) /HPF Urine RBC (Auto) 0-2 (0-2) /HPF U Epithel Cells (Auto) NONE (FEW) /HPF Urine Bacteria (Auto) NONE (NEGATIVE) /HPF Urine Culture Reflexed NO (NO) Urine Glucose NEGATIVE (NEGATIVE) mg/dL 07/14/18 Range/Units 18:19 WBC (4.0-10.5) K/mm3 RBC (4.1-5.6) M/mm3 Hgb (12.5-18.0) gm/dl Hct (42-50) % MCV (78-100) fl MCH (26-32) pg MCHC (32-36) g/dl RDW (11.5-14.0) % Plt Count (150-450) K/mm3 MPV (6-9.5) fl Gran % (36.0-66.0) % Eos # (Auto) (0-0.5) Absolute Lymphs (auto) (1.0-4.6) Absolute Monos (auto) (0.0-1.3) Lymphocytes % (24.0-44.0) % Monocytes % (0.0-12.0) % Eosinophils % (0.00-5.0) % Basophils % (0.0-0.4) % Absolute Granulocytes (1.4-6.9) Basophils # (0-0.4) Sodium Direct (138-146) mmol/L Potassium (3.5-4.9) mmol/L Chloride (98-109) mmol/L Carbon Dioxide (24-29) mmol/L Venous BUN (8-26) mg/dL Creatinine (0.6-1.3) mg/dL Glucose (70-105) mg/dL Lactic Acid 0.9 (0.4-2.0) Ionized Calcium (1.12-1.32) mmol/L Urine Color (YELLOW) Urine Appearance (CLEAR) Urine pH (5-6) Ur Specific [place] (1.005-1.025) Urine Protein (Negative) Urine Ketones (NEGATIVE) Urine Blood (0-5) Jack/ul Urine Nitrite (NEGATIVE) Urine Bilirubin (NEGATIVE) Urine Urobilinogen (0-1) mg/dL Ur Leukocyte Esterase (NEGATIVE) Urine WBC (Auto) (0-5) /HPF Urine RBC (Auto) (0-2) /HPF U Epithel Cells (Auto) (FEW) /HPF Urine Bacteria (Auto) (NEGATIVE) /HPF Urine Culture Reflexed (NO) Urine Glucose (NEGATIVE) mg/dL - Progress Progress: improved <INGRID GUY - Last Filed: 07/14/18 19:20> - Progress Counseled pt/family regarding: lab results, diagnosis, need for follow-up, rad results <NICOLLE COLVIN - Last Filed: 07/14/18 21:30> - Progress Progress Note: 07/14/18 19:19 Patient's case is discussed with Dr. Colvin he will assume care of this patient secondary to shift change (INGRID GUY) 07/14/18 21:26, EXAM- ABDOMINAL: SOFT MINIMAL PERIUMBILICAL TENDERNESS, NO GUARDING OR REBOUND TENDERNESS (NICOLLE COLVIN) <INGRID GUY - Last Filed: 07/14/18 19:20> - Departure Time of Disposition: 21:35 Departure Disposition: Home Critical Care Time: No <NICOLLE COLVIN - Last Filed: 07/14/18 21:30> - Departure Clinical Impression: ABDOMINAL PAIN, BILATERAL NEPHROLITHIASIS Condition: Stable Referrals: GRACIE LIGHT [Primary Care Provider] - Additional Instructions: CONTINUE ALL CURRENT MEDICATIONS. TORADOL 10LMG EVERY 6 HOURS NEEDED FOR PAIN. STRAIN YOUR URINE USING STRAINER FOR 4 DAYS. CONSULT YOUR PRIMARY CARE PROVIDER FOR FOLLOWUP IN 1 WEEK. Prescriptions: Ketorolac Tromethamine [Toradol] 10 mg PO Q6HPRN PRN #20 PRN Reason: Pain
[2018-07-14 18:35] LABS: BASOPHIL % 0.1 % (0.0-0.4); Basophil (Absolute #) 0.02 (0-0.4); Eosinophil % 0.6 % (0.00-5.0); Eosinophil (Absolute #) 0.09 (0-0.5); Granulocyte Absolute (ANC) 12.33 (1.4-6.9); Granulocytes % 88.8 % (36.0-66.0); Hematocrit 44.1 % (42-50); Hemoglobin 14.9 gm/dl (12.5-18.0); Lymphocyte (Absolute #) 0.73 (1.0-4.6); Lymphocytes % 5.2 % (24.0-44.0); Mean Cell Volume 90.6 fl (78-100); Mean Corpuscular Hemoglobin 30.6 pg (26-32); Mean Corpuscular Hgb Concent. 33.8 g/dl (32-36); Mean Platelet Volume 9.2 fl (6-9.5); Monocyte (Absolute #) 0.74 (0.0-1.3); Monocytes % 5.3 % (0.0-12.0); Platelet Count 286 K/mm3 (150-450); Red Blood Count 4.87 M/mm3 (4.1-5.6); Red Cell Distribution Width 12.6 % (11.5-14.0); White Blood Count 13.9 K/mm3 (4.0-10.5)
[2018-07-14] MEDS ORDERED: Sodium Chloride 0.9% 1000 ML 1,000 ML ONE (18:46)
[2018-07-14 18:54] VITALS: BP 123/71; PULSE 73
[2018-07-14 20:09] LABS: Appearance CLEAR (CLEAR); Bilirubin NEGATIVE (NEGATIVE); Blood SMALL Ery/ul (0-5); Glucose NEGATIVE (NEGATIVE); Ketones NEGATIVE (NEGATIVE); Leukocyte Esterase NEGATIVE (NEGATIVE); Nitrite NEGATIVE (NEGATIVE); Protein,Urine Dip NEGATIVE (Negative); RBC 0-2 /HPF (0-2); Specific Gravity 1.003 (1.005-1.025); Urobilinogen NEGATIVE mg/dL (0-1)
[2018-07-14] MEDS ORDERED: TORAdol 10 MG TABLET PO ONE (21:32)
--- NOTE | 2018-07-15 08:46 | XRAY ---
Indication: Abdomen pain and nausea. History kidney stone. Multiple contiguous axial images obtained through the abdomen and pelvis using 80 cc Isovue 370 contrast as ordered. Comparison: CT renal stone study April 30, 2016. Lung bases again there is minimal fibrosis/scarring. No infiltrate or effusion. Heart is not enlarged. Noncontrasted stomach and bowel loops appear nonobstructed. Normal appendix. No free fluid/air. Right kidney demonstrates 2 and left kidney demonstrates 1 nonobstructing micro-calculi. Stable calcified splenic granuloma. Remaining liver, gallbladder, pancreas, spleen, adrenal glands, kidneys, ureters, bladder, and aorta appear unremarkable. No pathologic retroperitoneal lymphadenopathy. Osseous structures intact. No ventral or inguinal hernias. Impression: 1. Nonobstructing bilateral renal micro-calculi. 2. Remaining CT abdomen/pelvis with contrast exam is negative. CT DI 10.11
== END 2018-07-14 22:28 | disposition home or self-care (01) ==
LOC: ED 16:31
DX: R10.9 Unspecified abdominal pain (principal); N20.0 Calculus of kidney; F41.8 Other specified anxiety disorders; Z87.442 Personal history of urinary calculi; K21.9 Gastro-esophageal reflux disease without esophagitis
CPT/HCPCS: 36415; 74177; 80047; 81001; 82150; 83605; 83690; 85025; 96360; 99284

== ENCOUNTER 2019-01-11 02:02 | Emergency (ER) | payer OTHER ==
[2019-01-11] MEDS ORDERED: TORAdol 30 mg Injection IV ONE (02:43)
[2019-01-11] MEDS ORDERED: Sodium Chloride 0.9% 1000 ML 1,000 ML IV STA (02:43)
[2019-01-11] MEDS ORDERED: TORAdol 30 mg Injection ONE (02:48)
[2019-01-11] MEDS ORDERED: Sodium Chloride 0.9% 1000 ML 1,000 ML ONE (02:48)
--- NOTE | 2019-01-11 02:50 | ERPHSYRPT ---
- History of Present Illness Historian: patient Exam Limitations: no limitations Patient Subjective Stated Complaint: pt c/o lt flank pain, states "I'm sure it' s another kidney stone, I've had 3 in the past." Triage Nursing Assessment: pt c/o lt lower flank pain, rates pain 6 on 0-10 scale, denies any abd pain. C/o nausea but denies any vomiting. lungs clear, heart tones reg, abd soft with active bs x4 quad. Physician History: Left lower back/flank pain for 2 hours of sudden onset. It has improved significantly. Timing/Duration: hour(s) (2) Activities at Onset: none Quality: aching, cramping, stabbing Abdominal Pain Onset Location: flank (left) Severity of Pain-Max: severe Severity of Pain-Current: mild Modifying Factors: Improves With: nothing Associated Symptoms: nausea, No back, No chest pain, No diaphoresis, No diarrhea , No fever/chills, No fatigue, No headache, No heartburn, No loss of appetite, No neck pain, No rash, No shortness of breath, No syncope, No testicular pain, No vomiting, No weakness Previous symptoms: same symptoms as today (states has had three separate incidents of kidney stones), no recent treatment Allergies/Adverse Reactions: No Known Drug Allergies Allergy (Verified 07/14/18 16:53) Home Medications: Escitalopram Oxalate 10 mg [Lexapro 10 MG] 10 mg PO DAILY 01/11/19 [History] Hx Tetanus, Diphtheria Vaccination/Date Given: Yes Hx Influenza Vaccination/Date Given: No Hx Pneumococcal Vaccination/Date Given: No Immunizations Up to Date: Yes - Review of Systems Constitutional: No Fever, No Chills Eyes: No Eye Pain, No Vision Changes Ears, Nose, & Throat: No Mouth Pain, No Mouth Swelling, No Painful Swallowing Respiratory: No Cough, No Dyspnea Cardiac: No Chest Pain, No Edema, No Syncope Abdominal/Gastrointestinal: Nausea, No Abdominal Pain, No Vomiting, No Diarrhea , No Hematemesis, No Hematochezia, No Melena Genitourinary Symptoms: Flank Pain, No Dysuria, No Frequency, No Hematuria, No Urinary Retention Musculoskeletal: Back Pain, No Neck Pain Skin: No Rash Neurological: No Dizziness, No Focal Weakness, No Parasthesia, No Sensory Changes, No Tremors Psychological: No Symptoms Endocrine: No Symptoms Hematologic/Lymphatic: No Easy Bleeding, No Easy Bruising All Other Systems: Reviewed and Negative - Past Medical History Pertinent Past Medical History: Yes Neurological History: No Pertinent History ENT History: No Pertinent History Cardiac History: No Pertinent History Respiratory History: No Pertinent History Endocrine Medical History: No Pertinent History Musculoskeletal History: No Pertinent History GI Medical History: No Pertinent History History: Other Psycho-Social History: Anxiety, Depression Male Reproductive Disorders: No Pertinent History Other Medical History: kidney stones 2-3 times - Past Surgical History Past Surgical History: No - Social History Smoking Status: Former smoker How long have you smoked: since 2007 Exposure to second hand smoke: Yes Drug Use: none Patient Lives Alone: No - Nursing Vital Signs Nursing Vital Signs: Initial Vital Signs Temperature 97.4 F 01/11/19 02:05 Pulse Rate 94 H 01/11/19 02:05 Respiratory Rate 16 01/11/19 02:05 Blood Pressure 135/91 01/11/19 02:05 O2 Sat by Pulse Oximetry 100 01/11/19 02:05 Pain Scale Pain Intensity 4 - Physical Exam General Appearance: no apparent distress, alert Eye Exam: PERRL/EOMI, eyes nml inspection, No scleral icterus Ears, Nose, Throat Exam: normal ENT inspection, pharynx normal, moist mucous membranes Neck Exam: normal inspection, non-tender, supple, full range of motion Respiratory Exam: normal breath sounds, lungs clear, airway intact, No respiratory distress, No accessory muscle use, No crackles/rales, No rhonchi, No wheezing, No stridor Cardiovascular Exam: regular rate/rhythm, normal heart sounds, normal peripheral pulses, capillary refill <2 sec Gastrointestinal/Abdomen Exam: soft, normal bowel sounds, No tenderness, No mass , No guarding, No rebound Back Exam: normal inspection, normal range of motion, No CVA tenderness, No vertebral tenderness Extremity Exam: normal inspection, normal range of motion, pelvis stable Neurologic Exam: alert, oriented x 3, cooperative, 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, normal mood/affect, nml cerebellar function, sensation nml, No motor deficits Skin Exam: normal color, warm, dry, No petechiae, No jaundice SpO2 Interpretation: normal SpO2: 100 O2 Delivery: Room Air - Course Nursing assessment & vital signs reviewed: Yes Ordered Tests: Active Orders 24 hr Category Date Time Status IV Insertion STAT Care 01/11/19 02:43 Active BMP Stat Lab 01/11/19 02:52 Completed CBC W DIFF Stat Lab 01/11/19 02:52 Completed CULTURE,URINE Stat Lab 01/11/19 02:52 Received UA W/RFX UR CULTURE Stat Lab 01/11/19 02:52 Completed Medication Summary Generic Name Dose Route Start Last Admin Trade Name Fredominguez PRN Reason Stop Dose Admin Sodium Chloride 1,000 mls @ 999 mls/hr 01/11/19 02:43 01/11/19 02:49 Sodium Chloride 0.9% 1000 Ml IV 01/11/19 03:43 999 mls/hr .Q1H1M STA Administration Discontinued Medications Generic Name Dose Route Start Last Admin Trade Name Freq PRN Reason Stop Dose Admin Sodium Chloride Confirm 01/11/19 02:48 Sodium Chloride 0.9% 1000 Ml Administered 01/11/19 02:49 Dose 1,000 mls @ ud .ROUTE .STK-MED ONE Ketorolac Tromethamine 30 mg 01/11/19 02:43 01/11/19 02:49 Toradol 30 Mg Injection IV 01/11/19 02:44 30 mg STAT ONE Administration Ketorolac Tromethamine Confirm 01/11/19 02:48 Toradol 30 Mg Injection Administered 01/11/19 02:49 Dose 30 mg .ROUTE .STK-MED ONE Lab/Rad Data: Laboratory Result Diagrams 01/11/19 02:52 01/11/19 02:52 Laboratory Results 01/11/19 01/11/19 01/11/19 Range/Units 02:52 02:52 02:52 WBC 7.9 (4.0-10.5) K/mm3 RBC 4.86 (4.1-5.6) M/mm3 Hgb 14.8 (12.5-18.0) gm/dl Hct 44.5 (42-50) % MCV 91.6 (78-100) fl MCH 30.5 (26-32) pg MCHC 33.3 (32-36) g/dl RDW 13.0 (11.5-14.0) % Plt Count 296 (150-450) K/mm3 MPV 9.7 H (6-9.5) fl Gran % 54.5 (36.0-66.0) % Eos # (Auto) 0.22 (0-0.5) Absolute Lymphs (auto) 2.54 (1.0-4.6) Absolute Monos (auto) 0.81 (0.0-1.3) Lymphocytes % 32.1 (24.0-44.0) % Monocytes % 10.2 (0.0-12.0) % Eosinophils % 2.8 (0.00-5.0) % Basophils % 0.4 (0.0-0.4) % Absolute Granulocytes 4.32 (1.4-6.9) Basophils # 0.03 (0-0.4) Sodium 141 (137-145) mmol/L Potassium 3.9 (3.5-5.1) mmol/L Chloride 103 (98-107) mmol/L Carbon Dioxide 26 (22-30) mmol/L Anion Gap 15.0 (5-15) MEQ/L BUN 13 (9-20) mg/dL Creatinine 0.69 (0.66-1.25) mg/dL Estimated GFR > 60.0 ML/MIN Glucose 101 (74-106) mg/dL Calcium 9.8 (8.4-10.2) mg/dL Urine Color YELLOW (YELLOW) Urine Appearance SLIGHTLY CLOUDY (CLEAR) Urine pH 6.0 (5-6) Ur Specific [place] 1.026 (1.005-1.025) Urine Protein 30 (Negative) Urine Ketones NEGATIVE (NEGATIVE) Urine Blood LARGE (0-5) Jack/ul Urine Nitrite NEGATIVE (NEGATIVE) Urine Bilirubin NEGATIVE (NEGATIVE) Urine Urobilinogen 2 (0-1) mg/dL Ur Leukocyte Esterase NEGATIVE (NEGATIVE) Urine WBC (Auto) 3-5 (0-5) /HPF Urine RBC (Auto) >101 (0-2) /HPF U Epithel Cells (Auto) NONE (FEW) /HPF Urine Bacteria (Auto) NONE (NEGATIVE) /HPF Urine Mucus (Auto) SLIGHT (NEGATIVE) /HPF Urine Culture Reflexed YES (NO) Urine Glucose NEGATIVE (NEGATIVE) mg/dL - Progress Progress: improved Progress Note: 01/11/19 03:18 Patient's pain and nausea have completely resolved. Patient has no abdominal or CVA tenderness on repeat examination. Due to patient not having a fever, normal renal function, negative elevated WBC and no significant physical examination findings, patient does not require any imaging studies at this time such as a KUB and a CT of the Abd/Pelvis. Patient has no indication for inpatient admission or immediate Urological of General Surgical evaluation at this time. Counseled pt/family regarding: lab results, diagnosis, need for follow-up - Departure Departure Disposition: Home Clinical Impression: Left flank pain, Ureteral calculus, left, Elevated blood pressure reading without diagnosis of hypertension Condition: Good Critical Care Time: No Referrals: GRACIE LIGHT [Primary Care Provider] - 01/13/19 Instructions: Kidney Stones (DC), Flank Pain, DASH Diet Additional Instructions: return immediately back to the emergency room if any worsening pain, recurrent nausea or vomiting, new abdominal pain, new fever, new skin rash, or any other concerning signs or symptoms that was not presentation return visit for immediate reevaluation in the emergency department. Prescriptions: Promethazine HCl 25 mg [Phenergan 25 mg] 25 mg PO Q6H PRN PRN #12 tablet PRN Reason: Nausea Etodolac 400 mg [Lodine 400 mg] 400 mg PO BID PRN PRN #20 tablet PRN Reason: Pain
[2019-01-11 02:51] LABS: BASOPHIL % 0.4 % (0.0-0.4); Basophil (Absolute #) 0.03 (0-0.4); Eosinophil % 2.8 % (0.00-5.0); Eosinophil (Absolute #) 0.22 (0-0.5); Granulocyte Absolute (ANC) 4.32 (1.4-6.9); Granulocytes % 54.5 % (36.0-66.0); Hematocrit 44.5 % (42-50); Hemoglobin 14.8 gm/dl (12.5-18.0); Lymphocyte (Absolute #) 2.54 (1.0-4.6); Lymphocytes % 32.1 % (24.0-44.0); Mean Cell Volume 91.6 fl (78-100); Mean Corpuscular Hemoglobin 30.5 pg (26-32); Mean Corpuscular Hgb Concent. 33.3 g/dl (32-36); Mean Platelet Volume 9.7 fl (6-9.5); Monocyte (Absolute #) 0.81 (0.0-1.3); Monocytes % 10.2 % (0.0-12.0); Platelet Count 296 K/mm3 (150-450); Red Blood Count 4.86 M/mm3 (4.1-5.6); White Blood Count 7.9 K/mm3 (4.0-10.5)
[2019-01-11 03:03] LABS: Appearance SLIGHTLY CLOUDY (CLEAR); Bilirubin NEGATIVE (NEGATIVE); Blood LARGE Ery/ul (0-5); Glucose NEGATIVE (NEGATIVE); Ketones NEGATIVE (NEGATIVE); Leukocyte Esterase NEGATIVE (NEGATIVE); Mucus SLIGHT /HPF (NEGATIVE); Nitrite NEGATIVE (NEGATIVE); Protein,Urine Dip 30 (Negative); Specific Gravity 1.026 (1.005-1.025); Urobilinogen 2 mg/dL (0-1)
[2019-01-11 03:04] VITALS: BP 105/63; PULSE 65
[2019-01-11 03:04] LABS: RBC >101 /HPF (0-2)
[2019-01-11 03:11] LABS: BLOOD UREA NITROGEN 13 mg/dL (9-20); CHLORIDE 103 mmol/L (98-107); Calcium 9.8 mg/dL (8.4-10.2); Carbon Dioxide 26 mmol/L (22-30); Creatinine 1 0.69 mg/dL (0.66-1.25); Glucose 101 mg/dL (74-106); Potassium 3.9 mmol/L (3.5-5.1); SODIUM 141 mmol/L (137-145)
[2019-01-11 03:23] VITALS: O2SAT 100
== END 2019-01-11 03:58 | disposition home or self-care (01) ==
LOC: ED 02:02
DX: R10.9 Unspecified abdominal pain (principal); N20.1 Calculus of ureter; R03.0 Elevated blood-pressure reading, without diagnosis of hypertension
CPT/HCPCS: 36000; 36415; 80048; 81001; 85025; 87086; 96360; 96374; 99284; J1885

== ENCOUNTER 2020-08-01 18:39 | Emergency (ER) | payer OTHER ==
[2020-08-01] MEDS ORDERED: TORAdol 30 mg Injection IV ONE (18:46)
[2020-08-01] MEDS ORDERED: Sodium Chloride 0.9% 1000 ML 1,000 ML IV STA (18:46)
[2020-08-01] MEDS ORDERED: Flomax 0.4 MG PO STA (18:49)
[2020-08-01 18:54] VITALS: O2SAT 98
[2020-08-01] MEDS ORDERED: TORAdol 30 mg Injection ONE (19:11)
[2020-08-01] MEDS ORDERED: Flomax 0.4 MG ONE (19:11)
[2020-08-01] MEDS ORDERED: Sodium Chloride 0.9% 1000 ML 1,000 ML ONE (19:12)
[2020-08-01 19:15] LABS: BASOPHIL % 0.3 % (0.0-0.4); Basophil (Absolute #) 0.03 (0-0.4); Eosinophil % 2.5 % (0.00-5.0); Eosinophil (Absolute #) 0.23 (0-0.5); Hematocrit 44.6 % (42-50); Hemoglobin 14.7 gm/dl (12.5-18.0); Lymphocyte (Absolute #) 2.48 (1.0-4.6); Lymphocytes % 27.2 % (24.0-44.0); Mean Platelet Volume 9.3 fl (7.5-11.0); Monocyte (Absolute #) 0.68 (0.0-1.3); Monocytes % 7.5 % (0.0-12.0); Neutrophil % 62.5 % (36.0-66.0); Platelet Count 317 K/mm3 (150-450); Red Cell Distribution Width 12.3 % (11.5-14.0); White Blood Count 9.1 K/mm3 (4.0-10.5)
[2020-08-01 19:22] LABS: Appearance CLOUDY (CLEAR); Bilirubin NEGATIVE (NEGATIVE); Blood LARGE Ery/ul (0-5); Glucose NEGATIVE (NEGATIVE); Ketones TRACE (NEGATIVE); Leukocyte Esterase NEGATIVE (NEGATIVE); Mucus SLIGHT /HPF (NEGATIVE); Nitrite NEGATIVE (NEGATIVE); Protein,Urine Dip 100 (Negative); Urobilinogen NEGATIVE mg/dL (0-1); WBC 0-2 /HPF (0-5)
[2020-08-01 19:25] LABS: RBC >101 /HPF (0-2)
[2020-08-01 19:26] LABS: ALBUMIN 4.9 g/dL (3.5-5.0); ALKALINE PHOSPHATASE 64 U/L (38-126); ANION GAP 17.8 MEQ/L (5-15); BLOOD UREA NITROGEN 14 mg/dL (9-20); CHLORIDE 103 mmol/L (98-107); Calcium 9.4 mg/dL (8.4-10.2); Carbon Dioxide 23 mmol/L (22-30); Creatinine 1 0.84 mg/dL (0.66-1.25); EST GLOMERULAR FILTRATION RATE > 60.0 ML/MIN; Glucose 112 mg/dL (74-106); Potassium 3.2 mmol/L (3.5-5.1); SGOT/AST 36 U/L (17-59); SGPT/ALT 50 U/L (0-50); SODIUM 141 mmol/L (137-145); Total Protein 7.9 g/dL (6.3-8.2)
[2020-08-01] MEDS ORDERED: Klor Con 10 MEQ PO ONE ×2 (19:32→19:47)
--- NOTE | 2020-08-01 19:36 | ERPHSYRPT ---
- History of Present Illness Time Seen by Provider: 08/01/20 18:50 Historian: patient Exam Limitations: no limitations Patient Subjective Stated Complaint: "I have a kidney stone." Triage Nursing Assessment: Patient reported acute onset right flank pain while at home. Denied any injuries or illnesses. Reported history of kidney stones with the largest being 8mm. Pain located in the right flank and non-radiating. Described as sharp and stabbing. reported hematuria. Denied nausea, vomiting, diarrhea. Symmetrical chest expansion. heart tones reguarl/clear. Lungs vesicular. Abdomen soft non-distended. bowel sounds present in all quaddrants. No noted abdominal tenderness, guarding, or rebound tenderness. Peripheral pulses +2 Physician History: Patient is a 29-year-old male presents to our ED with complaints of right flank pain. Patient has a history of kidney stones and feels that symptoms today are the same. Pain started prior to arrival. Pain described as ache that is localized. No radiation. No specific worsening or improving factors. No trauma. No fever. Patient did observe hematuria. Symptoms are mild to moderate in intensity. No specific worsening improving factors. Patient voices no other complaints or concerns at this time. Timing/Duration: today Activities at Onset: activity Quality: aching Abdominal Pain Onset Location: flank Pain Radiation: no radiation, flank Severity of Pain-Max: moderate Severity of Pain-Current: mild Modifying Factors: Improves With: nothing Associated Symptoms: denies symptoms Previous symptoms: same symptoms as today Allergies/Adverse Reactions: No Known Drug Allergies Allergy (Verified 08/01/20 18:44) Home Medications: Escitalopram Oxalate 10 mg [Lexapro 10 MG] 10 mg PO DAILY 01/11/19 [History] Buspirone HCl 5 mg [Buspar 5 mg] 1 tab PO BID 08/01/20 [History] Topiramate 1 tab PO DAILY 08/01/20 [History] Hx Tetanus, Diphtheria Vaccination/Date Given: Yes Hx Influenza Vaccination/Date Given: No Hx Pneumococcal Vaccination/Date Given: No Travel Risk - International Travel Have you traveled outside of the country in past 3 weeks: No - Coronavirus Screening Are you exhibiting any of the following symptoms?: No Close contact with a COVID-19 positive Pt in past 14-21 Days: No - Vaccine Status Have you recieved a Covid-19 vaccination: No - Review of Systems Constitutional: No Symptoms, No Fever, No Chills Eyes: No Symptoms Ears, Nose, & Throat: No Symptoms Respiratory: No Symptoms, No Cough, No Dyspnea Cardiac: No Symptoms, No Chest Pain, No Edema, No Syncope Abdominal/Gastrointestinal: No Symptoms, No Abdominal Pain, No Nausea, No Vomiting, No Diarrhea Genitourinary Symptoms: No Symptoms, No Dysuria Musculoskeletal: No Symptoms, No Back Pain, No Neck Pain Skin: No Symptoms, No Rash Neurological: No Symptoms, No Dizziness, No Focal Weakness, No Sensory Changes Psychological: No Symptoms Endocrine: No Symptoms Hematologic/Lymphatic: No Symptoms Immunological/Allergic: No Symptoms All Other Systems: Reviewed and Negative - Past Medical History Pertinent Past Medical History: Yes Neurological History: No Pertinent History ENT History: No Pertinent History Cardiac History: No Pertinent History Respiratory History: No Pertinent History Endocrine Medical History: No Pertinent History Musculoskeletal History: No Pertinent History GI Medical History: No Pertinent History History: Other Psycho-Social History: Anxiety, Depression Male Reproductive Disorders: No Pertinent History Other Medical History: kidney stones 2-3 times - Past Surgical History Past Surgical History: No - Social History Smoking Status: Former smoker How long have you smoked: since 2007 Exposure to second hand smoke: Yes Drug Use: none Patient Lives Alone: No - Nursing Vital Signs Nursing Vital Signs: Initial Vital Signs Temperature 98.7 F 08/01/20 18:39 Pulse Rate 90 08/01/20 18:39 Respiratory Rate 16 08/01/20 18:39 Blood Pressure 112/58 08/01/20 18:39 O2 Sat by Pulse Oximetry 98 08/01/20 18:39 Pain Scale Pain Intensity 10 - Physical Exam General Appearance: no apparent distress, alert Eye Exam: PERRL/EOMI, eyes nml inspection Ears, Nose, Throat Exam: normal ENT inspection, pharynx normal, moist mucous membranes Neck Exam: normal inspection, non-tender, supple, full range of motion Respiratory Exam: normal breath sounds, lungs clear, No respiratory distress Cardiovascular Exam: regular rate/rhythm, normal heart sounds Gastrointestinal/Abdomen Exam: soft, No tenderness, No mass Back Exam: normal inspection, normal range of motion, other (Mild right CVA tenderness palpation.), No CVA tenderness, No vertebral tenderness Extremity Exam: normal inspection, normal range of motion, pelvis stable Neurologic Exam: alert, oriented x 3, cooperative, normal mood/affect, nml cerebellar function, sensation nml, No motor deficits Skin Exam: normal color, warm, dry SpO2 Interpretation: normal SpO2: 98 O2 Delivery: Room Air - Course Nursing assessment & vital signs reviewed: Yes - CT Exams Abdomen/Pelvis CT Interpretation: Discussed w/radiologist (3 to 4 mm urinary bladder stone adjacent to the right UVJ. Mild right hydronephrosis and minimal ureteral prominence consistent with passage of stone.) Ordered Tests: Active Orders 24 hr Category Date Time Status IV Insertion STAT Care 08/01/20 18:46 Active ABDOMEN AND PELVIS W/0 CONTRAS [CT] Stat Exams 08/01/20 18:46 Taken CBC W DIFF Stat Lab 08/01/20 18:54 Completed CMP Stat Lab 08/01/20 18:54 Completed CULTURE,URINE Stat Lab 08/01/20 18:46 Received UA W/RFX UR CULTURE Stat Lab 08/01/20 18:46 Completed Medication Summary Generic Name Dose Route Start Last Admin Trade Name Freq PRN Reason Stop Dose Admin Sodium Chloride 1,000 mls @ 999 mls/hr 08/01/20 18:46 08/01/20 19:19 Sodium Chloride 0.9% 1000 Ml IV 08/01/20 19:46 999 mls/hr .Q1H1M STA Administration Discontinued Medications Generic Name Dose Route Start Last Admin Trade Name Freq PRN Reason Stop Dose Admin Sodium Chloride Confirm 08/01/20 19:12 Sodium Chloride 0.9% 1000 Ml Administered 08/01/20 19:13 Dose 1,000 mls @ ud .ROUTE .STK-MED ONE Ketorolac Tromethamine 30 mg 08/01/20 18:46 08/01/20 19:18 Toradol 30 Mg Injection IV 08/01/20 18:47 30 mg STAT ONE Administration Ketorolac Tromethamine Confirm 08/01/20 19:11 Toradol 30 Mg Injection Administered 08/01/20 19:12 Dose 30 mg .ROUTE .STK-MED ONE Tamsulosin HCl 0.4 mg 08/01/20 18:49 08/01/20 19:18 Flomax 0.4 Mg PO 08/01/20 18:50 0.4 mg ONCE STA Administration Tamsulosin HCl Confirm 08/01/20 19:11 Flomax 0.4 Mg Administered 08/01/20 19:12 Dose 0.4 mg .ROUTE .STK-MED ONE Lab/Rad Data: Laboratory Result Diagrams 08/01/20 18:54 08/01/20 18:54 Laboratory Results 08/01/20 08/01/20 08/01/20 Range/Units 18:54 18:54 18:46 WBC 9.1 (4.0-10.5) K/mm3 RBC 4.90 (4.1-5.6) M/mm3 Hgb 14.7 (12.5-18.0) gm/dl Hct 44.6 (42-50) % MCV 91.0 (78-100) fl MCH 30.0 (26-32) pg MCHC 33.0 (32-36) g/dl RDW 12.3 (11.5-14.0) % Plt Count 317 (150-450) K/mm3 MPV 9.3 (7.5-11.0) fl Gran % 62.5 (36.0-66.0) % Eos # (Auto) 0.23 (0-0.5) Absolute Lymphs (auto) 2.48 (1.0-4.6) Absolute Monos (auto) 0.68 (0.0-1.3) Lymphocytes % 27.2 (24.0-44.0) % Monocytes % 7.5 (0.0-12.0) % Eosinophils % 2.5 (0.00-5.0) % Basophils % 0.3 (0.0-0.4) % Absolute Granulocytes 5.70 (1.4-6.9) Basophils # 0.03 (0-0.4) Sodium 141 (137-145) mmol/L Potassium 3.2 L (3.5-5.1) mmol/L Chloride 103 (98-107) mmol/L Carbon Dioxide 23 (22-30) mmol/L Anion Gap 17.8 H (5-15) MEQ/L BUN 14 (9-20) mg/dL Creatinine 0.84 (0.66-1.25) mg/dL Estimated GFR > 60.0 ML/MIN Glucose 112 H (74-106) mg/dL Calcium 9.4 (8.4-10.2) mg/dL Total Bilirubin 0.30 (0.2-1.3) mg/dL AST 36 (17-59) U/L ALT 50 (0-50) U/L Alkaline Phosphatase 64 (38-126) U/L Serum Total Protein 7.9 (6.3-8.2) g/dL Albumin 4.9 (3.5-5.0) g/dL Urine Color ELIF (YELLOW) Urine Appearance CLOUDY (CLEAR) Urine pH 6.0 (5-6) Ur Specific [place] 1.020 (1.005-1.025) Urine Protein 100 (Negative) Urine Ketones TRACE (NEGATIVE) Urine Blood LARGE (0-5) Jack/ul Urine Nitrite NEGATIVE (NEGATIVE) Urine Bilirubin NEGATIVE (NEGATIVE) Urine Urobilinogen NEGATIVE (0-1) mg/dL Ur Leukocyte Esterase NEGATIVE (NEGATIVE) Urine WBC (Auto) 0-2 (0-5) /HPF Urine RBC (Auto) >101 (0-2) /HPF U Epithel Cells (Auto) NONE (FEW) /HPF Urine Bacteria (Auto) NONE (NEGATIVE) /HPF Urine Mucus (Auto) SLIGHT (NEGATIVE) /HPF Urine Culture Reflexed YES (NO) Urine Glucose NEGATIVE (NEGATIVE) mg/dL - Progress Progress: improved Progress Note: Patient reassessed. Pain resolved. CT revealed a 3 to 4 mm urinary bladder stone adjacent to the right UVJ. There is right hydronephrosis minimal urinary prominence. The findings suggestive of passage of stone. We will discharge patient home. Will provide patient with a urine strainer. Patient states that he has had 5 kidney stones in the past. His primary care doctor manages his stones. We will attempt to collect the stone and patient will forwarded to leander choe's family physician for analysis. Potassium 3.2. Oral potassium replacement ordered. 08/01/20 19:41 08/01/20 19:42 Counseled pt/family regarding: lab results, diagnosis, need for follow-up, rad results - Departure Departure Disposition: Home Clinical Impression: Ureterolithiasis, Hydronephrosis, Flank pain, Hematuria Condition: Stable Critical Care Time: No Referrals: GRACIE LIGHT [Primary Care Provider] - Additional Instructions: Discharge/Care Plan FABIO DUENAS was seen on 08/01/20 in the Emergency Room. The patient was counseled regarding Diagnosis,Lab results, Imaging studies, need for follow up and when to return to the Emergency Room. Prescriptions given: Discharge Note I have spoken with the patient and/or caregivers. I have explained the patient's condition, diagnosis and treatment plan based on the information available to me at this time. I have answered the patient's and/or caregiver's questions and addressed any concerns. The patient and/or caregivers have as good understanding of the patient's diagnosis, condition and treatment plan as can be expected at this point. The vital signs have been stable. The patient's condition is stable and appropriate for discharge from the emergency department. The patient will pursue further outpatient evaluation with the primary care physician or other designated or consulting physician as outlined in the discharge instructions. The patient and/or caregivers are agreeable to this plan of care and follow-up instructions have been explained in detail. The patient and/or caregivers have received these instruction. The patient/and or caregivers are aware that any significant change in condition or worsening of symptoms should prompt an immediate return to this or the closest emergency department or call 911.
[2020-08-01 19:46] VITALS: BP 111/65; PULSE 81
--- NOTE | 2020-08-02 08:43 | XRAY ---
Indication: Right abdomen pain and hematuria. History of stones. Multiple contiguous axial images obtained through the abdomen and pelvis without contrast using renal stone protocol. Comparison: July 14, 2018. Lung bases again demonstrating minimal fibrosis/scarring without infiltrate or effusion. Heart is not enlarged. Posterior urinary bladder demonstrates new 4 mm calculus adjacent to the right UVJ. Right kidney also demonstrating is mild hydronephrosis and minimal hydroureter presumed from recent passage of calculus. No renal edema or perinephric stranding. Left kidney negative for renal calculus or evidence for obstructive uropathy. Stomach is distended with food/fluid. Noncontrasted bowel loops appear nonobstructed. Normal appendix. No free fluid/air. There remains a splenic calcified granuloma. Remaining liver, gallbladder, pancreas, spleen, adrenal glands, kidneys, ureters, bladder, and aorta are unremarkable for noncontrast exam. Osseous structures intact. Impression: 1. New 4 mm urinary bladder calculus with right-sided hydronephrosis and hydroureter from recent passage of calculus. 2. Remaining CT abdomen/pelvis without contrast exam is negative.
== END 2020-08-01 20:03 | disposition home or self-care (01) ==
LOC: ED 18:39
DX: N13.2 Hydronephrosis with renal and ureteral calculous obstruction (principal); R10.9 Unspecified abdominal pain; R31.9 Hematuria, unspecified
CPT/HCPCS: 36000; 36415; 74176; 80053; 81001; 85025; 87086; 96374; 99284; J1885; A9270-GY

== ENCOUNTER 2022-01-15 03:06 | Emergency (ER) | payer OTHER ==
[2022-01-15 03:30] LABS: Amourphous Crystal FEW /HPF (NEGATIVE); Appearance SLIGHTLY CLOUDY (CLEAR); Mucus SLIGHT /HPF (NEGATIVE)
[2022-01-15 03:31] LABS: Bilirubin NEGATIVE (NEGATIVE); Dipstick done @ ? MAIN LAB; Glucose NEGATIVE (NEGATIVE); Ketones NEGATIVE (NEGATIVE); Nitrite NEGATIVE (NEGATIVE); Ph 5.5 (5-6); Protein,Urine Dip NEGATIVE (Negative); RBC >101 /HPF (0-2); RBC LARGE Ery/ul (0-5); Specific Gravity 1.025 (1.005-1.025); Urine Cultured Indicated? NO; Urobilinogen 0.2 mg/dL (0-1)
--- NOTE | 2022-01-15 03:40 | ERPHSYRPT ---
- History of Present Illness Historian: patient Exam Limitations: no limitations Patient Subjective Stated Complaint: pt states he has been having rt side flank pain wheich woke him up. states on the way here his pain decreased and he is having no pain at this time Triage Nursing Assessment: pt alert and oriented, answers questions approp. pt ambulatory with steady gait noted. respirations nonlabored. skin warm and dry. urine yellow and cloudy with sediment noted. Physician History: 31 yo wm w R CVA pain starting at 2:45AM. Pain was a 10 but dropped to 0 when he most likely passed the stone in the ER bathroom. He has had nausea wo vomiting. Pain did not radiate. He has had dysuria wo hematuria/frequency/fever. Timing/Duration: other (2:45AM) Quality: sharpness, stabbing Abdominal Pain Onset Location: other (R CVA) Pain Radiation: no radiation Severity of Pain-Max: severe Severity of Pain-Current: none Modifying Factors: Improves With: nothing Associated Symptoms: denies symptoms, back, nausea, No chest pain, No diaphoresis, No diarrhea, No fever/chills, No fatigue, No headache, No heartburn, No loss of appetite, No neck pain, No rash, No shortness of breath, No syncope, No testicular pain, No vomiting, No weakness Previous symptoms: same symptoms as today Allergies/Adverse Reactions: No Known Drug Allergies Allergy (Verified 01/15/22 03:33) Home Medications: Escitalopram Oxalate [Lexapro 10 MG] 20 mg PO DAILY 01/11/19 [History] Buspirone HCl 5 mg [Buspar 5 mg] 1 tab PO BID 08/01/20 [History] Topiramate 1 tab PO DAILY 08/01/20 [History] Hx Tetanus, Diphtheria Vaccination/Date Given: Yes Hx Influenza Vaccination/Date Given: No Hx Pneumococcal Vaccination/Date Given: No Immunizations Up to Date: Yes Travel Risk - International Travel Have you traveled outside of the country in past 3 weeks: No - Coronavirus Screening Are you exhibiting any of the following symptoms?: No Close contact with a COVID-19 positive Pt in past 14-21 Days: No - Vaccine Status Have you recieved a Covid-19 vaccination: No - Review of Systems Constitutional: No Symptoms Eyes: No Symptoms Ears, Nose, & Throat: No Symptoms Respiratory: No Symptoms Cardiac: No Symptoms Abdominal/Gastrointestinal: No Symptoms, Nausea Genitourinary Symptoms: No Symptoms, Dysuria, Frequency, Urgency Musculoskeletal: No Symptoms Skin: No Symptoms Neurological: No Symptoms Psychological: No Symptoms Endocrine: No Symptoms Hematologic/Lymphatic: No Symptoms Immunological/Allergic: No Symptoms - Past Medical History Pertinent Past Medical History: Yes Neurological History: No Pertinent History ENT History: No Pertinent History Cardiac History: No Pertinent History Respiratory History: No Pertinent History Endocrine Medical History: No Pertinent History Musculoskeletal History: No Pertinent History GI Medical History: No Pertinent History History: Other Psycho-Social History: Anxiety, Depression Male Reproductive Disorders: No Pertinent History Other Medical History: kidney stones 2-3 times - Past Surgical History Past Surgical History: No - Social History Smoking Status: Former smoker How long have you smoked: since 2007 Exposure to second hand smoke: Yes Drug Use: none Patient Lives Alone: No Significant Family History: no pertinent family hx - Nursing Vital Signs Nursing Vital Signs: Initial Vital Signs Temperature 97.2 F 01/15/22 03:13 Pulse Rate 61 01/15/22 03:13 Respiratory Rate 18 01/15/22 03:13 Blood Pressure 116/79 01/15/22 03:13 O2 Sat by Pulse Oximetry 99 01/15/22 03:13 Pain Scale Pain Intensity 0 WNL - Physical Exam General Appearance: no apparent distress Eye Exam: PERRL/EOMI, eyes nml inspection Ears, Nose, Throat Exam: normal ENT inspection, TMs normal, pharynx normal, moist mucous membranes Neck Exam: normal inspection, non-tender, supple, full range of motion, No meningismus, No mass, No Brudzinski, No Kernig's Respiratory Exam: normal breath sounds, lungs clear, airway intact Cardiovascular Exam: regular rate/rhythm, normal heart sounds, normal peripheral pulses, murmur, capillary refill <2 sec Gastrointestinal/Abdomen Exam: soft, normal bowel sounds, No tenderness Back Exam: normal inspection, normal range of motion, CVA tenderness, No vertebral tenderness Extremity Exam: normal inspection, normal range of motion Neurologic Exam: alert, oriented x 3, cooperative, screen printer II-XII nml as tested, normal mood/affect, nml cerebellar function, nml station & gait, sensation nml, No motor deficits, No sensory deficit Skin Exam: normal color, warm, dry Lymphatic Exam: No adenopathy SpO2 Interpretation: normal SpO2: 99 O2 Delivery: Room Air - Course Nursing assessment & vital signs reviewed: Yes Ordered Tests: Active Orders 24 hr Category Date Time Status UA W/RFX CULTURE Stat Lab 01/15/22 03:30 Completed Lab/Rad Data: Laboratory Results 01/15/22 Range/Units 03:30 Urinalys Dipstick Clnc MAIN LAB Urine Color YELLOW (YELLOW) Urine Appearance SLIGHTLY CLOUDY (CLEAR) Urine pH 5.5 (5-6) Ur Specific [place] 1.025 (1.005-1.025) POC Urine Protein Conf NEGATIVE (Negative) Urine Ketones NEGATIVE (NEGATIVE) Urine Nitrite NEGATIVE (NEGATIVE) Urine Bilirubin NEGATIVE (NEGATIVE) Urine Urobilinogen 0.2 (0-1) mg/dL Urine Leukocytes NEGATIVE (NEGATIVE) Urine WBC (Auto) 6-10 (0-5) /HPF Urine RBC (Auto) >101 (0-2) /HPF U Epithel Cells (Auto) NONE (FEW) /HPF Urine Bacteria (Auto) NONE (NEGATIVE) /HPF Urine RBC LARGE (0-5) Jack/ul Amorphous Crystals FEW (NEGATIVE) /HPF Urine Mucus (Auto) SLIGHT (NEGATIVE) /HPF Ur Culture Indicated? NO Urine Glucose NEGATIVE (NEGATIVE) mg/dL - Progress Progress: improved Progress Note: 01/15/22 03:[address] since most likely passed stone and is pain free. Possible stone in urine examined by slab miller operator which broke up when examined. Pt has had 6 CT's of abdomen-pelvis per reported history, so risks of radiation exposure exceeded benefits of CT at this time. He was advised to return to ER if pain returns or if he develops a temperature greater than 100.5. 01/15/22 04:01 Counseled pt/family regarding: lab results, diagnosis, need for follow-up - Departure Departure Disposition: Home Clinical Impression: Kidney stone Condition: Stable Critical Care Time: No Referrals: DOCTOR,NO FAMILY [Primary Care Provider] - Follow up/PCP as directed Instructions: Kidney Stones (DC) Additional Instructions: Strain all urine Fluids Follow up with your family MD or urologist Return to ER for increasing pain or temperature greater than 100.5 Bactrim twice a day for 3 days Prescriptions: Sulfamethoxazole/Trimethoprim [Bactrim Ds Tablet] 1 each PO BID 3 Days #6 tablet
[2022-01-15 04:11] VITALS: BP 111/80; PULSE 63
[2022-01-15 06:01] VITALS: O2SAT 99
== END 2022-01-15 04:09 | disposition home or self-care (01) ==
LOC: ED 03:06
DX: N20.0 Calculus of kidney (principal); R10.9 Unspecified abdominal pain; R11.0 Nausea; R30.0 Dysuria; Z87.442 Personal history of urinary calculi; Z79.899 Other long term (current) drug therapy; Z28.310 Unvaccinated for COVID-19
CPT/HCPCS: 81015; 99282

== ENCOUNTER 2022-02-15 10:45 | Emergency (ER) | payer OTHER ==
[2022-02-15] MEDS ORDERED: TORAdol 30 mg Injection IV ONE (11:23)
[2022-02-15] MEDS ORDERED: Zofran 4 MG/2 ML VIAL IV ONE (11:23)
[2022-02-15] MEDS ORDERED: Sodium Chloride 0.9% 1000 ML 1,000 ML IV STA (11:23)
[2022-02-15] MEDS ORDERED: Sodium Chloride 0.9% 1000 ML 1,000 ML ONE (11:25)
[2022-02-15] MEDS ORDERED: TORAdol 30 mg Injection ONE (11:25)
[2022-02-15] MEDS ORDERED: Zofran 4 MG/2 ML VIAL ONE (11:25)
[2022-02-15 11:38] LABS: Absolute Neutrophil Ct (ANC) 5.74 x10^3/uL (1.4-6.9); Basophil (Absolute #) 0.04 x10^3/uL (0-0.4); Eosinophil % 2.1 % (0.00-5.0); Eosinophil (Absolute #) 0.16 x10^3/uL (0-0.5); Hematocrit 42.1 % (42-50); Hemoglobin 13.7 g/dL (12.5-18.0); Lymphocyte (Absolute #) 1.19 x10^3/uL (1.0-4.6); Lymphocytes % 15.5 % (24.0-44.0); Mean Cell Volume 92.9 fL (78-100); Mean Corpuscular Hemoglobin 30.2 pg (26-32); Mean Corpuscular Hgb Concent. 32.5 g/dL (32-36); Mean Platelet Volume 8.8 fL (7.5-11.0); Monocyte (Absolute #) 0.53 x10^3/uL (0.0-1.3); Monocytes % 6.9 % (0.0-12.0); Neutrophil % 74.7 % (36.0-66.0); Platelet Count 293 x10^3/uL (150-450); Red Blood Count 4.53 x10^6/uL (4.1-5.6); Red Cell Distribution Width 11.9 % (11.5-14.0); White Blood Count 7.7 x10^3/uL (4.0-10.5)
--- NOTE | 2022-02-15 11:41 | ERPHSYRPT ---
- History of Present Illness Time Seen by Provider: 02/15/22 10:56 Historian: patient Exam Limitations: no limitations Patient Subjective Stated Complaint: Right sided flank pain Triage Nursing Assessment: Patient ambulated back to ED and transferred self to bed. Patient A+O x3. Patient's skin pink, warm and dry. Patient complains of right sided flank pain that started this am. Patient states he started urinating blood last night. Patient has hx of kidney stones. Patient denies pain to right flank, but states the pain comes and goes. Physician History: 31 years old male presented to the ER with chief complaint of right flank pain since morning, intermittent, moderate to severe intensity sharp nature, nonradiating, associated with nausea but no vomiting. Aggravated with palpation movements and partial relief with being still on right side. Also reports associated hematuria without dysuria or frequency. No fever or chills reported. Does have history of kidney stones in the past. Timing/Duration: today, intermittent, sudden, worse Activities at Onset: rest Quality: sharpness Abdominal Pain Onset Location: flank Pain Radiation: no radiation Severity of Pain-Max: severe Severity of Pain-Current: moderate Modifying Factors: Worsens With: movement, palpation Associated Symptoms: nausea Previous symptoms: no prior history Allergies/Adverse Reactions: No Known Drug Allergies Allergy (Verified 02/15/22 10:58) Home Medications: Escitalopram Oxalate [Lexapro 10 MG] 20 mg PO DAILY 01/11/19 [History] Buspirone HCl 5 mg [Buspar 5 mg] 1 tab PO BID 08/01/20 [History] Topiramate 1 tab PO DAILY 08/01/20 [History] Hx Tetanus, Diphtheria Vaccination/Date Given: Yes Hx Influenza Vaccination/Date Given: No Hx Pneumococcal Vaccination/Date Given: No Immunizations Up to Date: Yes Travel Risk - International Travel Have you traveled outside of the country in past 3 weeks: No - Coronavirus Screening Are you exhibiting any of the following symptoms?: No Close contact with a COVID-19 positive Pt in past 14-21 Days: No - Vaccine Status Have you recieved a Covid-19 vaccination: No - Review of Systems Constitutional: No Symptoms Eyes: No Symptoms Ears, Nose, & Throat: No Symptoms Respiratory: No Symptoms Cardiac: No Symptoms Abdominal/Gastrointestinal: Abdominal Pain, Nausea Genitourinary Symptoms: Hematuria Musculoskeletal: No Symptoms Skin: No Symptoms Neurological: No Symptoms Endocrine: No Symptoms Hematologic/Lymphatic: No Symptoms Immunological/Allergic: No Symptoms - Past Medical History Pertinent Past Medical History: Yes Neurological History: No Pertinent History ENT History: No Pertinent History Cardiac History: No Pertinent History Respiratory History: No Pertinent History Endocrine Medical History: No Pertinent History Musculoskeletal History: No Pertinent History GI Medical History: No Pertinent History History: Other Psycho-Social History: Anxiety, Depression Male Reproductive Disorders: No Pertinent History Other Medical History: kidney stones 2-3 times - Past Surgical History Past Surgical History: No - Social History Smoking Status: Former smoker How long have you smoked: since 2007 Exposure to second hand smoke: Yes Drug Use: none Patient Lives Alone: No Significant Family History: no pertinent family hx - Nursing Vital Signs Nursing Vital Signs: Initial Vital Signs Temperature 97.5 F 02/15/22 11:00 Pulse Rate 69 02/15/22 11:00 Respiratory Rate 18 02/15/22 11:00 Blood Pressure 133/87 02/15/22 11:00 O2 Sat by Pulse Oximetry 99 02/15/22 11:00 Pain Scale Pain Intensity 7 - Physical Exam General Appearance: no apparent distress, alert Eye Exam: PERRL/EOMI Ears, Nose, Throat Exam: normal ENT inspection Neck Exam: normal inspection, supple, full range of motion Respiratory Exam: normal breath sounds, lungs clear Cardiovascular Exam: regular rate/rhythm, normal heart sounds Gastrointestinal/Abdomen Exam: soft, normal bowel sounds, tenderness (Right flank), No guarding Back Exam: normal inspection, normal range of motion, CVA tenderness (Right side) Extremity Exam: normal inspection, normal range of motion Neurologic Exam: alert, oriented x 3, cooperative Skin Exam: normal color SpO2 Interpretation: normal SpO2: 99 O2 Delivery: Room Air Ordered Tests: Active Orders 24 hr Category Date Time Status IV Insertion STAT Care 02/15/22 11:23 Active NPO (ED) STAT Care 02/15/22 11:23 Active ABDOMEN AND PELVIS W/0 CONTRAS [CT] Stat Exams 02/15/22 11:23 Taken CBC W DIFF Stat Lab 02/15/22 11:30 Completed CMP Stat Lab 02/15/22 11:30 Completed CULTURE,URINE Stat Lab 02/15/22 11:32 Received LIPASE Stat Lab 02/15/22 11:30 Completed UA W/RFX CULTURE Stat Lab 02/15/22 11:32 Completed Medication Summary Discontinued Medications Generic Name Dose Route Start Last Admin Trade Name Maria Guadalupe PRN Reason Stop Dose Admin Sodium Chloride 1,000 mls @ 999 mls/hr 02/15/22 11:23 02/15/22 12:37 Sodium Chloride 0.9% 1000 Ml IV 02/15/22 12:23 Infused .Q1H1M STA Infusion Sodium Chloride Confirm 02/15/22 11:25 Sodium Chloride 0.9% 1000 Ml Administered 02/15/22 11:26 Dose 1,000 mls @ ud .ROUTE .STK-MED ONE Ceftriaxone Sodium/Dextrose 2 g in 50 mls @ 100 mls/hr 02/15/22 13:33 1 14:07 Rocephin 2 Gm-D5w 50ml Bag IV 02/15/22 14:02 Infused STAT STA Infusion Ceftriaxone Sodium/Dextrose Confirm 02/15/22 13:35 Rocephin 2 Gm-D5w 50ml Bag Administered 02/15/22 13:36 Dose 2 g in 50 mls @ ud IV .STK-MED ONE Ketorolac Tromethamine 30 mg 02/15/22 11:23 02/15/22 11:26 Ketorolac Tromethamine 30 Mg/Ml Inj IV 02/15/22 11:24 30 mg STAT ONE Administration Ketorolac Tromethamine Confirm 02/15/22 11:25 Ketorolac Tromethamine 30 Mg/Ml Inj Administered 02/15/22 11:26 Dose 30 mg .ROUTE .STK-MED ONE Morphine Sulfate 4 mg 02/15/22 14:17 02/15/22 14:20 Morphine Sulfate 4 Mg/Ml Injection IV 02/15/22 14:18 4 mg STAT ONE Administration Morphine Sulfate Confirm 02/15/22 14:19 Morphine Sulfate 4 Mg/Ml Injection Administered 02/15/22 14:20 Dose 4 mg .ROUTE .STK-MED ONE Ondansetron HCl 4 mg 02/15/22 11:23 02/15/22 11:26 Ondansetron Hcl 4 Mg/2 Ml Vial IV 02/15/22 11:24 4 mg STAT ONE Administration Ondansetron HCl Confirm 02/15/22 11:25 Ondansetron Hcl 4 Mg/2 Ml Vial Administered 02/15/22 11:26 Dose 4 mg .ROUTE .STK-MED ONE Lab/Rad Data: Laboratory Result Diagrams 02/15/22 11:30 02/15/22 11:30 Laboratory Results 02/15/22 02/15/22 02/15/22 Range/Units 11:32 11:30 11:30 WBC 7.7 (4.0-10.5) x10^3/uL RBC 4.53 (4.1-5.6) x10^6/uL Hgb 13.7 (12.5-18.0) g/dL Hct 42.1 (42-50) % MCV 92.9 (78-100) fL MCH 30.2 (26-32) pg MCHC 32.5 (32-36) g/dL RDW 11.9 (11.5-14.0) % Plt Count 293 (150-450) x10^3/uL MPV 8.8 (7.5-11.0) fL Gran % 74.7 H (36.0-66.0) % Immature Gran % (Auto) 0.3 (0.00-0.4) % Nucleat RBC Rel Count 0.0 (0.00-0.1) % Eos # (Auto) 0.16 (0-0.5) x10^3/uL Immature Gran # (Auto) 0.02 (0.00-0.03) x10^3u/L Absolute Lymphs (auto) 1.19 (1.0-4.6) x10^3/uL Absolute Monos (auto) 0.53 (0.0-1.3) x10^3/uL Absolute Nucleated RBC 0.00 (0.00-0.01) x10^3u/L Lymphocytes % 15.5 L (24.0-44.0) % Monocytes % 6.9 (0.0-12.0) % Eosinophils % 2.1 (0.00-5.0) % Basophils % 0.5 (0.0-0.4) % Absolute Granulocytes 5.74 (1.4-6.9) x10^3/uL Basophils # 0.04 (0-0.4) x10^3/uL Sodium 138 (137-145) mmol/L Potassium 3.8 (3.5-5.1) mmol/L Chloride 106 (98-107) mmol/L Carbon Dioxide 25 (22-30) mmol/L Anion Gap 11.3 (5-15) MEQ/L BUN 15 (9-20) mg/dL Creatinine 0.94 (0.66-1.25) mg/dL Estimated GFR > 60.0 ML/MIN Glucose 105 (74-106) mg/dL Calcium 9.3 (8.4-10.2) mg/dL Total Bilirubin 0.40 (0.2-1.3) mg/dL AST 31 (17-59) U/L ALT 54 H (0-50) U/L Alkaline Phosphatase 69 (38-126) U/L Serum Total Protein 7.7 (6.3-8.2) g/dL Albumin 4.7 (3.5-5.0) g/dL Lipase 132 (23-300) U/L Urinalys Dipstick Clnc MAIN LAB Urine Color BROWN (YELLOW) Urine Appearance CLOUDY (CLEAR) Urine pH 5.5 (5-6) Ur Specific [place] >=1.030 (1.005-1.025) POC Urine Protein Conf 100 (Negative) Urine Ketones NEGATIVE (NEGATIVE) Urine Nitrite NEGATIVE (NEGATIVE) Urine Bilirubin SMALL (NEGATIVE) Urine Urobilinogen 0.2 (0-1) mg/dL Urine Leukocytes NEGATIVE (NEGATIVE) Urine WBC (Auto) 3-5 (0-5) /HPF Urine RBC (Auto) >101 (0-2) /HPF U Epithel Cells (Auto) NONE (FEW) /HPF Urine Bacteria (Auto) RARE (NEGATIVE) /HPF Urine RBC LARGE (0-5) Jack/ul Unidentified Crystals >100 (NEGATIVE) /HPF Urine Mucus (Auto) SLIGHT (NEGATIVE) /HPF Urine Yeast (Budding) Moderate (NEGATIVE) /HPF Ur Culture Indicated? YES Urine Glucose NEGATIVE (NEGATIVE) mg/dL - Progress Progress: improved, pain not gone completely, re-examined Progress Note: 02/15/22 14:32 31 years old is evaluated for flank pain. Given symptomatic treatment along with fluids. Patient work-up showed normal white count, unremarkable chemistries. No definite of UTI. CT showed 8 mm obstructive stone right proximal ureter. Given a dose of antibiotics. No urology services available here. Discussed with Dr. Capps at [facility] and patient is accepted for transfer. Discussed with Dr.: Other (Dr. Capps at [facility]) Will see patient in: ED Counseled pt/family regarding: lab results, diagnosis, rad results - Departure Departure Disposition: Transfer Clinical Impression: Obstructive uropathy Condition: Stable Critical Care Time: No Referrals: DOCTOR,NO FAMILY [Primary Care Provider] - Follow up/PCP as directed
[2022-02-15 11:54] LABS: ALBUMIN 4.7 g/dL (3.5-5.0); ALKALINE PHOSPHATASE 69 U/L (38-126); ANION GAP 11.3 MEQ/L (5-15); BLOOD UREA NITROGEN 15 mg/dL (9-20); CHLORIDE 106 mmol/L (98-107); Calcium 9.3 mg/dL (8.4-10.2); Carbon Dioxide 25 mmol/L (22-30); Creatinine 1 0.94 mg/dL (0.66-1.25); EST GLOMERULAR FILTRATION RATE > 60.0 ML/MIN; Glucose 105 mg/dL (74-106); LIPASE 132 U/L (23-300); Potassium 3.8 mmol/L (3.5-5.1); SGOT/AST 31 U/L (17-59); SGPT/ALT 54 U/L (0-50); SODIUM 138 mmol/L (137-145); Total Protein 7.7 g/dL (6.3-8.2)
[2022-02-15] MEDS ORDERED: ROCEPHIN 2 Gm-D5w 50ML BAG** 2 G/50 ML IVPB IV STA (13:33)
[2022-02-15] MEDS ORDERED: ROCEPHIN 2 Gm-D5w 50ML BAG** 2 G/50 ML IVPB IV ONE (13:35)
[2022-02-15 13:37] LABS: Appearance CLOUDY (CLEAR); Bilirubin SMALL (NEGATIVE); Glucose NEGATIVE (NEGATIVE); Ketones NEGATIVE (NEGATIVE)
[2022-02-15 13:38] LABS: Dipstick done @ ? MAIN LAB; Nitrite NEGATIVE (NEGATIVE); Ph 5.5 (5-6); Protein,Urine Dip 100 (Negative); RBC LARGE Ery/ul (0-5); Specific Gravity >=1.030 (1.005-1.025); Urobilinogen 0.2 mg/dL (0-1)
[2022-02-15 13:43] LABS: Bacteria RARE /HPF (NEGATIVE); Budding Yeast Moderate /HPF (NEGATIVE); Crystals Unidentified >100 /HPF (NEGATIVE); Mucus SLIGHT /HPF (NEGATIVE); RBC >101 /HPF (0-2)
[2022-02-15 13:44] LABS: Urine Cultured Indicated? YES
[2022-02-15] MEDS ORDERED: MORPHINE SULFATE 4 MG INJ IV ONE (14:17)
[2022-02-15] MEDS ORDERED: MORPHINE SULFATE 4 MG INJ ONE (14:19)
[2022-02-15 14:45] VITALS: BP 114/75; PULSE 76; O2SAT 97
--- NOTE | 2022-02-15 19:50 | XRAY ---
Indication: Right flank pain. History renal stones. Multiple contiguous axial images obtained through the abdomen and pelvis without contrast using renal stone protocol. Comparison: 2020 Lung bases again demonstrates minimal fibrosis/scarring. No infiltrate or effusion. Heart not enlarged. New 5 x 8 mm proximal right ureter calculus, approximately L3 level. Moderate hydronephrosis consistent with obstructive uropathy. No free fluid/air. Noncontrasted stomach and bowel loops nonobstructed with normal appendix. Minimal sigmoid diverticulosis. Remaining liver, gallbladder, pancreas, spleen, adrenal glands, left kidney, left ureter, bladder, and aorta are unremarkable for noncontrast exam. Osseous structures intact. Impression: 1. New 5 x 8 mm proximal right ureter calculus producing obstructive uropathy as detailed. 2. Minimal sigmoid diverticulosis. Comment: Preliminary interpretation made by C. No critical discrepancy.
== END 2022-02-15 14:56 | disposition short-term general hospital (02) ==
LOC: ED 10:45
DX: N13.2 Hydronephrosis with renal and ureteral calculous obstruction (principal); R10.9 Unspecified abdominal pain; R11.0 Nausea; R31.9 Hematuria, unspecified; Z87.442 Personal history of urinary calculi; Z79.899 Other long term (current) drug therapy; Z28.310 Unvaccinated for COVID-19
CPT/HCPCS: 36000; 36415; 74176; 80053; 81015; 83690; 85025; 87086; 96360; 96365; 96374; 96375; 99285; J0696; J1885; J2270; J2405

== ENCOUNTER 2024-04-18 06:04 | Emergency (ER) | payer OTHER ==
[2024-04-18 06:20] VITALS: TEMP 97.5; O2SAT 100
--- NOTE | 2024-04-18 06:52 | ERPHSYRPT ---
- History of Present Illness Historian: patient, family Exam Limitations: no limitations Patient Subjective Stated Complaint: pt states that he has had stomach pain for the past 2 days Triage Nursing Assessment: pt ambulated into the er; pt is axo x4; c/o abd pain; pt states 5/10 pain to LUQ; c/o N/V denies diarrhea; abd round, soft, tender; no respiratory distress present; vitals wnl Timing/Duration: day(s) (2) Quality: aching, sharpness, stabbing Abdominal Pain Onset Location: LUQ, generalized abdomen Pain Radiation: no radiation Severity of Pain-Max: moderate Severity of Pain-Current: moderate Associated Symptoms: diarrhea, loss of appetite, nausea, vomiting, No chest pain, No shortness of breath Previous symptoms: no prior history, no recent treatment Hx Tetanus, Diphtheria Vaccination/Date Given: No Hx Influenza Vaccination/Date Given: No Hx Pneumococcal Vaccination/Date Given: No <ANNA MARIE DOMINGUEZ - Last Filed: 04/18/24 06:47> <MARQUISE FREIRE - Last Filed: 04/18/24 08:39> - History of Present Illness Time Seen by Provider: 04/18/24 06:25 Physician History: This is a 33-year-old white male patient of nurse practitioner Kena who presents to the emergency department by private vehicle accompanied by family secondary to abdominal pain that began 2 days ago and worsened this morning and has associated nausea and vomiting episodes and diarrhea. The pain is both an ache and has been sharp and stabbing. He has never had anything like this before. He has no flank pain. He has no urinary tract infection symptoms. He has had no prior abdominal surgeries. (ANNA MARIE DOMINGUEZ) Allergies/Adverse Reactions: No Known Drug Allergies Allergy (Verified 04/18/24 06:08) Home Medications: Lumateperone Tosylate [Caplyta] 21 mg PO DAILY 04/18/24 [History] cloNIDine HCL 0.2 mg PO HS 04/18/24 [History] cloNIDine HCL [Clonidine HCl] 0.1 mg PO HS 04/18/24 [History] Travel Risk - International Travel Have you traveled outside of the country in past 3 weeks: No - Emerging Infectious Disease Are you exhibiting symptoms associated with any current EIDs: Yes Symptoms: Abdominal Pain, Vomitting <ANNA MARIE DOMINGUEZ - Last Filed: 04/18/24 06:47> - Review of Systems Constitutional: No Symptoms Eyes: No Symptoms Ears, Nose, & Throat: No Symptoms Respiratory: No Symptoms Cardiac: No Symptoms Abdominal/Gastrointestinal: Abdominal Pain, Nausea, Vomiting, Diarrhea, Appetite Changes Genitourinary Symptoms: No Symptoms Musculoskeletal: No Symptoms Skin: No Symptoms Neurological: No Symptoms Psychological: No Symptoms Endocrine: No Symptoms Hematologic/Lymphatic: No Symptoms Immunological/Allergic: No Symptoms All Other Systems: Reviewed and Negative <ANNA MARIE DOMINGUEZ - Last Filed: 04/18/24 06:47> - Past Medical History Pertinent Past Medical History: Yes Neurological History: No Pertinent History ENT History: No Pertinent History Cardiac History: No Pertinent History Respiratory History: No Pertinent History Endocrine Medical History: No Pertinent History Musculoskeletal History: No Pertinent History GI Medical History: No Pertinent History History: Other Psycho-Social History: Anxiety, Depression Male Reproductive Disorders: No Pertinent History Other Medical History: kidney stones 2-3 times - Past Surgical History Past Surgical History: No Other Surgical History: kidney stone removal Significant Family History: no pertinent family hx - Social History Smoking Status: Light tobacco smoker How long have you smoked: since 2007 Exposure to second hand smoke: Yes Drug Use: none Patient Lives Alone: No - Social Determinants of Health Will the patient participate in the screening: Yes Do you worry about a steady place to live?: No Do you have any problems with any of the following?: No known problems In the past 12 months,have you had to go without utilities?: No Transportation Issues: No Has anyone in your support network made you feel unsafe?: No Have you or anyone in your house had to go without enough: No <ANNA MARIE DOMINGUEZ - Last Filed: 04/18/24 06:47> - Physical Exam General Appearance: mild distress, alert, anxiety Eye Exam: PERRL/EOMI, eyes nml inspection Ears, Nose, Throat Exam: normal ENT inspection, moist mucous membranes Neck Exam: normal inspection, non-tender, supple, full range of motion Respiratory Exam: normal breath sounds, lungs clear, airway intact, No chest tenderness, No respiratory distress Cardiovascular Exam: regular rate/rhythm, normal heart sounds, normal peripheral pulses Gastrointestinal/Abdomen Exam: soft, normal bowel sounds, tenderness (Left upper quadrant to palpation), guarding (Left upper quadrant to palpation), No rebound Rectal Exam: not done Back Exam: normal inspection, normal range of motion, No CVA tenderness, No vertebral tenderness Extremity Exam: normal inspection, normal range of motion, pelvis stable Neurologic Exam: alert, oriented x 3, cooperative, 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, nml cerebellar function, nml station & gait, sensation nml Skin Exam: normal color, warm, dry Lymphatic Exam: No adenopathy SpO2 Interpretation: normal SpO2: 100 O2 Delivery: Room Air <ANNA MARIE DOMINGUEZ - Last Filed: 04/18/24 06:47> - Nursing Vital Signs Nursing Vital Signs: Initial Vital Signs Temperature 97.5 F 04/18/24 06:10 Pulse Rate 51 L 04/18/24 06:10 Respiratory Rate 18 04/18/24 06:10 Blood Pressure 98/64 04/18/24 06:10 O2 Sat by Pulse Oximetry 100 04/18/24 06:10 Pain Scale Pain Intensity 0 - Course Nursing assessment & vital signs reviewed: Yes <ANNA MARIE DOMINGUEZ - Last Filed: 04/18/24 06:47> - CT Exams Abdomen/Pelvis CT Interpretation: Tele-radiologist Report (Right nephrolithiasis otherwise n egative) <MARQUISE FREIRE - Last Filed: 04/18/24 08:39> Ordered Tests: Active Orders 24 hr Category Date Time Status IV Insertion STAT Care 04/18/24 06:43 Active ABDOMEN AND PELVIS W/0 CONTRAS [CT] Stat Exams 04/18/24 06:43 Completed AMYLASE Stat Lab 04/18/24 07:11 Completed CBC W DIFF Stat Lab 04/18/24 07:11 Completed CMP Stat Lab 04/18/24 07:11 Completed LIPASE Stat Lab 04/18/24 07:11 Completed MONO SCREEN Stat Lab 04/18/24 07:11 Completed Medication Summary Discontinued Medications Generic Name Dose Route Start Last Admin Trade Name Freq PRN Reason Stop Dose Admin Hydromorphone HCl 1 mg 04/18/24 06:43 04/18/24 07:48 Hydromorphone 1 Mg/1ml Inj IV 04/18/24 06:44 1 mg STAT ONE Administration Hydromorphone HCl Confirm 04/18/24 07:42 Hydromorphone 1 Mg/1ml Inj Administered 04/18/24 07:43 Dose 1 mg .ROUTE .STK-MED ONE Sodium Chloride 1,000 mls @ 999 mls/hr 04/18/24 06:43 04/18/24 07:43 Sodium Chloride 0.9% 1000 Ml IV 04/18/24 07:43 999 mls/hr .Q1H1M STA Administration Sodium Chloride Confirm 04/18/24 07:42 Sodium Chloride 0.9% 1000 Ml Administered 04/18/24 07:43 Dose 1,000 mls @ ud .ROUTE .STK-MED ONE Ondansetron HCl 4 mg 04/18/24 06:43 04/18/24 07:45 Ondansetron Hcl 4 Mg/2 Ml Vial IV 04/18/24 06:44 4 mg STAT ONE Administration Ondansetron HCl Confirm 04/18/24 07:42 Ondansetron Hcl 4 Mg/2 Ml Vial Administered 04/18/24 07:43 Dose 4 mg .ROUTE .STK-MED ONE Pantoprazole Sodium 40 mg 04/18/24 06:43 04/18/24 07:46 Pantoprazole 40 Mg Vial IV 04/18/24 06:44 40 mg STAT ONE Administration Pantoprazole Sodium Confirm 04/18/24 07:42 Pantoprazole 40 Mg Vial Administered 04/18/24 07:43 Dose 40 mg IV .STK-MED ONE Lab/Rad Data: Laboratory Result Diagrams 04/18/24 07:11 04/18/24 07:11 Laboratory Results 04/18/24 04/18/24 04/18/24 Range/Units 07:11 07:11 07:11 WBC (4.23-9.07) x10^3/uL RBC (4.63-6.08) x10^6/uL Hgb (13.7-17.5) g/dL Hct (40.1-51.0) % MCV (79.0-92.2) fL MCH (25.7-32.2) pg MCHC (32.3-36.5) g/dL RDW (11.6-14.4) % Plt Count (163-337) x10^3/uL MPV (9.4-12.4) fL Gran % (34.0-67.9) % Immature Gran % (Auto) (0.001-0.429) % Nucleat RBC Rel Count (0.00-0.2) % Eos # (Auto) (0.04-0.54) x10^3/uL Immature Gran # (Auto) (0.001-0.031) x10^3u/L Absolute Lymphs (auto) (1.32-3.57) x10^3/uL Absolute Monos (auto) (0.30-0.82) x10^3/uL Absolute Nucleated RBC (0.00-0.012) x10^3u/L Lymphocytes % (21.8-53.1) % Monocytes % (5.3-12.2) % Eosinophils % (0.8-7.0) % Basophils % (0.2-1.2) % Absolute Granulocytes (1.78-5.38) x10^3/uL Basophils # (0.01-0.08) x10^3/uL Sodium 136 (135-145) mmol/L Potassium 3.8 (3.5-5.1) mmol/L Chloride 102 (98-107) mmol/L Carbon Dioxide 28 (22-30) mmol/L Anion Gap 10.1 (5-15) MEQ/L BUN 9 (9-20) mg/dL Creatinine 0.87 (0.66-1.25) mg/dL Estimated GFR 115.4 ML/MIN Glucose 119 H (74-106) mg/dL Calcium 9.4 (8.4-10.2) mg/dL Total Bilirubin 0.40 (0.2-1.3) mg/dL AST 36 (17-59) U/L ALT 59 H (0-50) U/L Alkaline Phosphatase 78 (38-126) U/L Serum Total Protein 7.0 (6.3-8.2) g/dL Albumin 4.2 (3.5-5.0) g/dL Amylase 54 (30-110) U/L Lipase 120 (23-300) U/L Monoscreen NEGATIVE (NEGATIVE) Influenza Type A Ag NEGATIVE (NEGATIVE) Influenza Type B Ag NEGATIVE (NEGATIVE) RSV (PCR) NEGATIVE (NEGATIVE) SARS-CoV-2 (PCR) NEGATIVE (NEGATIVE) 04/18/24 Range/Units 07:11 WBC 6.5 (4.23-9.07) x10^3/uL RBC 4.79 (4.63-6.08) x10^6/uL Hgb 14.2 (13.7-17.5) g/dL Hct 42.2 (40.1-51.0) % MCV 88.1 (79.0-92.2) fL MCH 29.6 (25.7-32.2) pg MCHC 33.6 (32.3-36.5) g/dL RDW 12.0 (11.6-14.4) % Plt Count 258 (163-337) x10^3/uL MPV 8.6 L (9.4-12.4) fL Gran % 75.7 H (34.0-67.9) % Immature Gran % (Auto) 0.6 H (0.001-0.429) % Nucleat RBC Rel Count 0.0 (0.00-0.2) % Eos # (Auto) 0.11 (0.04-0.54) x10^3/uL Immature Gran # (Auto) 0.04 H (0.001-0.031) x10^3u/L Absolute Lymphs (auto) 1.05 L (1.32-3.57) x10^3/uL Absolute Monos (auto) 0.35 (0.30-0.82) x10^3/uL Absolute Nucleated RBC 0.00 (0.00-0.012) x10^3u/L Lymphocytes % 16.1 L (21.8-53.1) % Monocytes % 5.4 (5.3-12.2) % Eosinophils % 1.7 (0.8-7.0) % Basophils % 0.5 (0.2-1.2) % Absolute Granulocytes 4.96 (1.78-5.38) x10^3/uL Basophils # 0.03 (0.01-0.08) x10^3/uL Sodium (135-145) mmol/L Potassium (3.5-5.1) mmol/L Chloride (98-107) mmol/L Carbon Dioxide (22-30) mmol/L Anion Gap (5-15) MEQ/L BUN (9-20) mg/dL Creatinine (0.66-1.25) mg/dL Estimated GFR ML/MIN Glucose (74-106) mg/dL Calcium (8.4-10.2) mg/dL Total Bilirubin (0.2-1.3) mg/dL AST (17-59) U/L ALT (0-50) U/L Alkaline Phosphatase (38-126) U/L Serum Total Protein (6.3-8.2) g/dL Albumin (3.5-5.0) g/dL Amylase (30-110) U/L Lipase (23-300) U/L Monoscreen (NEGATIVE) Influenza Type A Ag (NEGATIVE) Influenza Type B Ag (NEGATIVE) RSV (PCR) (NEGATIVE) SARS-CoV-2 (PCR) (NEGATIVE) <ANNA MARIE DOMINGUEZ - Last Filed: 04/18/24 06:47> - Progress Progress: improved Counseled pt/family regarding: lab results, diagnosis, need for follow-up, rad results <MARQUISE FREIRE - Last Filed: 04/18/24 08:39> - Progress Progress Note: 04/18/24 06:50 My medical decision making and the assignment of moderate complexity to this patient's medical issue today is based on review of the patient's past medical history, review of the patient's medication list, reviewed patient drug allergy list, history present illness and physical findings on examination. The workup in this patient includes placement of a intravenous line, infusion of normal saline solution, infusion of Zofran, infusion of Dilaudid, infusion of Protonix, CBC, CMP, amylase, lipase, urinalysis, viral swabs, monotest and CT scan of the abdomen pelvis without contrast. Differential diagnosis includes but is not limited to acute intra- abdominal/pelvic abnormality, pancreatitis, gastritis, viral illness, d ehydration I am transferring care of this patient at shift change to Dr. Marquise Freire. I discussed the patient history, chief complaint, physical findings on examination and workup pending. He will follow-up on the workup results and make final disposition. (ANNA MARIE DOMINGUEZ) Patient endorsed to Dr. Freire at approximately [address] Freire advised follow-up on pending studies including laboratory workup and imaging. Laboratory workup essentially nonremarkable. Imaging studies shows a right nephrolithiasis otherwise negative. Patient received IV fluids, Dilaudid, Zofran and Protonix. Patient reassessed. Pain resolved. Patient resting comfortably. Patient afeb rile. Vital stable. Patient tolerating p.o. A prescription for Zofran forwarded to patient's pharmacy. Patient consulted on bowel rest clear liquid diet avoiding heavy greasy spicy foods. Patient agrees to follow-up with his primary care doctor within 48 hours for reevaluation. Family at bedside. They voiced no other complaints or concerns at this time. Patient states he is ready for discharge. Portions of this note were created with voice recognition technology. There may be grammatical, spelling, punctuation or sound alike errors 04/18/24 08:35 (MARQUISE FREIRE) - Departure Departure Disposition: Home Critical Care Time: No <ANNA MARIE DOMINGUEZ - Last Filed: 04/18/24 06:47> <MARQUISE FREIRE - Last Filed: 04/18/24 08:39> - Departure Clinical Impression: Abdominal pain, Vomiting, Nephrolithiasis Condition: Stable Referrals: ALICIA ARANGO, INSURANCE CLAIMS EXAMINER [Primary Care Provider] - Follow up/PCP as directed Additional Instructions: Discharge/Care Plan FABIO DUENAS was seen on 04/18/24 in the Emergency Room. The patient was counseled regarding Diagnosis,Lab results, Imaging studies, need for follow up and when to return to the Emergency Room. Prescriptions given: Discharge Note I have spoken with the patient and/or caregivers. I have explained the patient's condition, diagnosis and treatment plan based on the information available to me at this time. I have answered the patient's and/or caregiver's questions and addressed any concerns. The patient and/or caregivers have as good understanding of the patient's diagnosis, condition and treatment plan as can be expected at this point. The vital signs have been stable. The patient's condition is stable and appropriate for discharge from the emergency department. The patient will pursue further outpatient evaluation with the primary care physician or other designated or consulting physician as outlined in the discharge instructions. The patient and/or caregivers are agreeable to this plan of care and follow-up instructions have been explained in detail. The patient and/or caregivers have received these instruction. The patient/and or caregivers are aware that any significant change in condition or worsening of symptoms should prompt an immediate return to this or the closest emergency department or call 911. Prescriptions: Ondansetron ODT 4 MG [Zofran Odt 4 mg] 4 mg PO Q6H PRN PRN #10 tablet PRN Reason: Vomiting
[2024-04-18 07:10] LABS: Absolute Neutrophil Ct (ANC) 4.96 x10^3/uL (1.78-5.38); BASOPHIL % 0.5 % (0.2-1.2); Basophil (Absolute #) 0.03 x10^3/uL (0.01-0.08); Eosinophil % 1.7 % (0.8-7.0); Eosinophil (Absolute #) 0.11 x10^3/uL (0.04-0.54); Hematocrit 42.2 % (40.1-51.0); Hemoglobin 14.2 g/dL (13.7-17.5); IMMATURE GRAN # 0.04 x10^3u/L (0.001-0.031); IMMATURE GRAN % 0.6 % (0.001-0.429); Lymphocyte (Absolute #) 1.05 x10^3/uL (1.32-3.57); Lymphocytes % 16.1 % (21.8-53.1); Mean Cell Volume 88.1 fL (79.0-92.2); Mean Corpuscular Hemoglobin 29.6 pg (25.7-32.2); Mean Corpuscular Hgb Concent. 33.6 g/dL (32.3-36.5); Mean Platelet Volume 8.6 fL (9.4-12.4); Monocyte (Absolute #) 0.35 x10^3/uL (0.30-0.82); Monocytes % 5.4 % (5.3-12.2); Neutrophil % 75.7 % (34.0-67.9); Platelet Count 258 x10^3/uL (163-337); Red Blood Count 4.79 x10^6/uL (4.63-6.08); White Blood Count 6.5 x10^3/uL (4.23-9.07)
[2024-04-18 07:30] LABS: ALBUMIN 4.2 g/dL (3.5-5.0); ANION GAP 10.1 MEQ/L (5-15); BILIRUBIN,TOTAL 0.4 mg/dL (0.2-1.3); Calcium 9.4 mg/dL (8.4-10.2); Creatinine 1 0.87 mg/dL (0.66-1.25); EST GLOMERULAR FILTRATION RATE 115.4 ML/MIN; Potassium 3.8 mmol/L (3.5-5.1)
[2024-04-18 07:41] VITALS: BP 102/56; RESP 17
[2024-04-18] MEDS ORDERED: Hydromorphone 1 mg/ml Injection ONE (07:42)
[2024-04-18] MEDS ORDERED: Sodium Chloride 0.9% 1000 ML 1,000 ML ONE (07:42)
[2024-04-18] MEDS ORDERED: Zofran 4 MG/2 ML VIAL ONE (07:42)
[2024-04-18] MEDS ORDERED: PROTONIX 40 MG IV IV ONE (07:42)
[2024-04-18] MEDS: Sodium Chloride 0.9% 1000 ML 1,000 ML IV STA (07:43)
[2024-04-18] MEDS: Zofran 4 MG/2 ML VIAL IV ONE (07:45)
[2024-04-18] MEDS: PROTONIX 40 MG IV IV ONE (07:46)
[2024-04-18 07:47] LABS: INFLUENZA A NEGATIVE (NEGATIVE); INFLUENZA B NEGATIVE (NEGATIVE); RESPIRATORY SYNCTIAL VIRUS NEGATIVE (NEGATIVE); SARS-CoV-2 Xpert Express NEGATIVE (NEGATIVE)
[2024-04-18] MEDS: Hydromorphone 1 mg/ml Injection IV ONE (07:48)
--- NOTE | 2024-04-18 08:13 | XRAY ---
CLINICAL HISTORY: Abdominal pain; nausea vomiting COMPARISON: No prior studies available for comparison. TECHNIQUE: Non-contrast CT of the abdomen and pelvis was performed, with the following protocol: axial images, and reconstructed coronal and sagittal images. One of the following dose reduction techniques was utilized for this exam: Automated exposure control, adjustment of the mA and/or kV according to patient size, and use of iterative reconstruction. FINDINGS: Abdomen: Liver: Normal in size, shape, and density. No obvious focal lesions, cysts, or masses were identified keeping non-contrast study limitation. Gallbladder and Biliary System: The gallbladder is normal in size and shape. No wall thickening, pericholecystic fluid, or gallstones were identified. Pancreas: Pancreatic head, body, and tail are visualized and appear normal in size and density. No pancreatic masses or calcifications were noted. Spleen: Normal in size, shape, and density. No splenic lesions or masses were identified keeping non-contrast study limitation. Small calcified granuloma/nodule is seen in the spleen. Kidneys and Adrenal Glands: Both kidneys are normal in size, shape, and position. Cortical thickness is within normal limits. There is a tiny non-obstructive calculus in upper pole calyx of right kidney seen on coronal and sagittal images (image reference [id number]). No left renal calculi or hydronephrosis. Adrenal glands are unremarkable. Visualized lung bases show minimal basal atelectatic changes. Pelvis: Urinary Bladder: Urinary bladder is partially filled. No calculi. Prostate: Normal in size and contour. No masses or abnormal thickening. Seminal Vesicles: Normal appearance without abnormal enlargement or mass. Peritoneal and Retroperitoneal Structures: No free fluid or abnormal fluid collections were identified within the abdomen or pelvis. No lymphadenopathy was noted. Appendix: No ct evidence of acute appendicitis. Bowel: The visualized bowel loops are normal in caliber and appearance. No evidence of bowel obstruction or wall thickening. Bones and Soft Tissues: Pelvic bones and soft tissues are unremarkable. No fractures or abnormal masses were identified. IMPRESSION: 1. Right renal tiny non-obstructive calculus without hydronephrosis. 2. No CT evidence of acute appendicitis. Electronically Signed by: Dinorah Stapleton MD. (04/18/2024 08:09:59 EST)
[2024-04-18 08:32] VITALS: PULSE 60
== END 2024-04-18 08:58 | disposition home or self-care (01) ==
LOC: ED 06:04
DX: R10.84 Generalized abdominal pain (principal); R11.2 Nausea with vomiting, unspecified; N20.0 Calculus of kidney
CPT/HCPCS: 0241U; 36415; 74176; 80053; 82150; 83690; 85025; 86308; 96374; 96375; 99284; J1171; J2405